=== PATIENT | male | born 1985 | race Caucasian/White ===

== ENCOUNTER 2017-07-22 07:56 | Outpatient (CLI) | payer BC ==
[~2017-07-22 07:56] MED LIST: ACETAMINOPHEN 325 MG TABLET PO PRN; DEXTROSE 5%-WATER 250 ML IV PRN; DIPHENHYDRAMINE HCL 50 MG in NORMAL SALINE 50 ML IV PRN; IMMUNE GLOB GAM CAPRYLATE IV PRN; [UNRECOGNIZED DRUG - OTHER] IV PRN
[2017-07-22 09:52] VITALS: BP 105/65
== END 2017-07-22 13:00 | disposition home or self-care (01) ==
LOC: II 07:56 → 5TH 07:58 → II 13:00
PROVIDERS: ATTEND Internal Medicine
PROC: 30233S1 Transfusion of Nonautologous Globulin into Peripheral Vein, Percutaneous Approach (ICD-10-PCS; principal; 2017-07-22)
PROC: 3E033GC Introduction of Other Therapeutic Substance into Peripheral Vein, Percutaneous Approach (ICD-10-PCS; 2017-07-22)
DX: D80.1 Nonfamilial hypogammaglobulinemia (principal)
CPT/HCPCS: 96413; 96415; 96374; 96417; J1561 ×3; J1200; J3490; 96365; 96366; 96375

== ENCOUNTER 2017-08-19 10:05 | Outpatient (CLI) | payer BC ==
[~2017-08-19 10:05] MED LIST changes: +DIPHENHYDRAMINE HCL 25 MG CAPSULE PO PRN; -DIPHENHYDRAMINE HCL 50 MG in NORMAL SALINE 50 ML IV PRN
[2017-08-19 11:48] VITALS: BP 121/71
== END 2017-08-19 14:22 | disposition home or self-care (01) ==
LOC: II 10:05 → 5TH 10:08 → II 14:22
PROVIDERS: ATTEND Internal Medicine
PROC: 30233S1 Transfusion of Nonautologous Globulin into Peripheral Vein, Percutaneous Approach (ICD-10-PCS; principal; 2017-08-19)
DX: D80.1 Nonfamilial hypogammaglobulinemia (principal)
CPT/HCPCS: 96367; 96360; J1561 ×3; J3490; 96365; 96366

== ENCOUNTER 2018-05-04 07:50 | Outpatient (CLI) | payer BC ==
[~2018-05-04 07:50] MED LIST changes: -DIPHENHYDRAMINE HCL 25 MG CAPSULE PO PRN; +DIPHENHYDRAMINE HCL 50 MG CAPSULE PO PRN; +GLY IV PRN; +IGA OV50 IV PRN; +IMMUN GLOB IV PRN; -IMMUNE GLOB GAM CAPRYLATE IV PRN; +[UNRECOGNIZED DRUG - OTHER] IV PRN; -[UNRECOGNIZED DRUG - OTHER] IV PRN
== END 2018-05-04 13:27 | disposition home or self-care (01) ==
LOC: II 07:50 → 5TH 07:56 → II 13:27
PROVIDERS: ATTEND Internal Medicine
PROC: 30233S1 Transfusion of Nonautologous Globulin into Peripheral Vein, Percutaneous Approach (ICD-10-PCS; principal; 2018-05-04)
DX: D83.9 Common variable immunodeficiency, unspecified (principal); D80.1 Nonfamilial hypogammaglobulinemia
CPT/HCPCS: 96365; 96366; 96367; 96360; J3490; J1569 ×3

== ENCOUNTER 2018-05-25 08:27 | Outpatient (CLI) | payer BC ==
[~2018-05-25 08:27] MED LIST changes: +[UNRECOGNIZED DRUG - OTHER] IV PRN; -[UNRECOGNIZED DRUG - OTHER] IV PRN
[2018-05-25 09:26] VITALS: BP 110/58
[2018-05-25 10:04] LABS: ABSOLUTE LYMPHOCYTES (AUTO) 0.8 10^3/uL (0.5-4.7); ABSOLUTE MONOCYTES (AUTO) 0.2 10^3/uL (0.1-1.4); ABSOLUTE NEUT (AUTO) 4.6 10^3/uL (1.7-8.2); BASOPHILS % (AUTO) 0.5 % (0-2); EOSINOPHILS % (AUTO) 0.2 % (0-6); HEMATOCRIT 41.8 % (37.9-51.0); HEMOGLOBIN 14.5 g/dL (13.5-17.0); LYMPHOCYTES % (AUTO) 13.9 % (13-45); MEAN CORPUSCULAR HEMOGLOBIN 29.1 pg (27.0-33.4); MEAN CORPUSCULAR HGB CONC 34.8 g/dL (32.0-36.0); MEAN CORPUSCULAR VOLUME 84 fl (80-97); MONOCYTES % (AUTO) 3.5 % (3-13); PLATELET COUNT 196 10^3/uL (150-450); RED CELL DISTRIBUTION WIDTH 15.1 % (11.5-14.0); SEGMENTED NEUTROPHILS % (AUTO) 81.9 % (42-78); TOTAL CELLS COUNTED % (AUTO) 100 %; WHITE BLOOD COUNT 5.6 10^3/uL (4.0-10.5)
[2018-05-25 10:22] LABS: ALANINE AMINOTRANSFERASE 39 U/L (21-72); ALBUMIN 3.9 g/dL (3.5-5.0); ALKALINE PHOSPHATASE 97 U/L (38-126); ANION GAP 9 (5-19); ASPARTATE AMINO TRANSFERASE 29 U/L (17-59); BILIRUBIN,DIRECT 0.2 mg/dL (0.0-0.4); BILIRUBIN,TOTAL 0.4 mg/dL (0.2-1.3); BLOOD UREA NITROGEN 7 mg/dL (7-20); CALCIUM 9.1 mg/dL (8.4-10.2); CARBON DIOXIDE 31 mmol/L (22-30); CHLORIDE 105 mmol/L (98-107); GLUCOSE 72 mg/dL (75-110); POTASSIUM 4.1 mmol/L (3.6-5.0); SODIUM 144.5 mmol/L (137-145); TOTAL PROTEIN 6.2 g/dL (6.3-8.2)
== END 2018-05-25 13:41 | disposition home or self-care (01) ==
LOC: II 08:27 → 5TH 08:29 → II 13:41
PROVIDERS: ATTEND Internal Medicine
PROC: 30233S1 Transfusion of Nonautologous Globulin into Peripheral Vein, Percutaneous Approach (ICD-10-PCS; principal; 2018-05-25)
DX: D83.9 Common variable immunodeficiency, unspecified (principal); D80.1 Nonfamilial hypogammaglobulinemia
CPT/HCPCS: 36415; 85025; 80053; 96365; 96366; J3490; J1569 ×2

== ENCOUNTER 2018-07-06 08:28 | Outpatient (CLI) | payer BC ==
[~2018-07-06 08:28] MED LIST changes: -ACETAMINOPHEN 325 MG TABLET PO PRN; -DIPHENHYDRAMINE HCL 50 MG CAPSULE PO PRN; +DIPHENHYDRAMINE HCL 50 MG in NORMAL SALINE 50 ML IV PRN; -GLY IV PRN; -IGA OV50 IV PRN; -IMMUN GLOB IV PRN; +IMMUNE GLOB,GAM CAPRYLATE(IGG) 40 GM, IMMUNE GLOB,GAM CAPRYLATE(IGG) 10 GM in CONTAINER... IV PRN; -[UNRECOGNIZED DRUG - OTHER] IV PRN
[2018-07-06 09:13] VITALS: BP 110/63
[2018-07-06] MEDS ORDERED: DIPHENHYDRAMINE HCL 50 MG/ML VIAL ONE (09:23)
== END 2018-07-06 13:01 | disposition home or self-care (01) ==
LOC: II 08:28 → 5TH 08:58 → II 13:01
PROVIDERS: ATTEND Internal Medicine
PROC: 30233S1 Transfusion of Nonautologous Globulin into Peripheral Vein, Percutaneous Approach (ICD-10-PCS; principal; 2018-07-06)
PROC: 3E033GC Introduction of Other Therapeutic Substance into Peripheral Vein, Percutaneous Approach (ICD-10-PCS; 2018-07-06)
DX: D83.9 Common variable immunodeficiency, unspecified (principal); D80.1 Nonfamilial hypogammaglobulinemia
CPT/HCPCS: 96365; 96367; J1561 ×2; J1200; J3490; 96366

== ENCOUNTER 2018-10-20 12:44 | Emergency (ER) | payer BC ==
[2018-10-20] MEDS ORDERED: NORMAL SALINE 1000 ML 1,000 ML IV ONE (14:02)
[2018-10-20] MEDS ORDERED: ONDANSETRON HCL INJ/PF 4 MG/2 ML SDV IV ONE (14:02)
--- NOTE | 2018-10-20 14:03 | ER Document Report ---
ED Medical Screen (RME) - General Chief Complaint: Nausea/Vomiting/Diarrhea Stated Complaint: VOMITING Time Seen by Provider: 10/20/18 14:01 Mode of Arrival: Ambulatory Information source: Patient Notes: Patient presents with nausea vomiting diarrhea that started yesterday. Patient states he is vomited 3 times and had diarrhea 8 times today. No blood in emesis or stool. Patient reports decreased appetite and feeling lightheaded. Patient complains of generalized abdominal pain. No fever. Patient does have a history of common variable immunodeficiency syndrome as well as psoriasis and takes Humira to treat his psoriasis. I have greeted and performed a rapid initial assessment of this patient. A comprehensive ED assessment and evaluation of the patient, analysis of test results and completion of the medical decision making process will be conducted by additional ED providers. TRAVEL OUTSIDE OF THE [place] IN LAST 30 DAYS: No - Related Data Allergies/Adverse Reactions: No Known Drug Allergies Allergy (Mild, Verified 10/20/18 13:36) Past Medical History - Social History Frequency of alcohol use: Occasional Drug Abuse: None Pulmonary Medical History: Reports: Hx Pneumonia Renal/ Medical History: Denies: Hx Peritoneal Dialysis Skin Medical History: Reports Hx Psoriasis - Immunizations Hx Diphtheria, Pertussis, Tetanus Vaccination: Yes History of Influenza Vaccine for 01/2017 - 06/2017 Season: Refused Physical Exam - Vital signs Vitals: Temp Pulse Resp BP Pulse Ox 98.2 F 91 18 123/81 99 10/20/18 13:54 10/20/18 13:54 10/20/18 13:54 10/20/18 13:54 10/20/18 13:54 - Abdominal Tenderness: Tender - Generalized abdomen Course - Vital Signs Vital signs: Temp Pulse Resp BP Pulse Ox 98.2 F 91 18 123/81 99 10/20/18 13:54 10/20/18 13:54 10/20/18 13:54 10/20/18 13:54 10/20/18 13:54
[2018-10-20 15:19] LABS: ABSOLUTE BASOPHILS # (AUTO) 0.1 10^3/uL (0.0-0.2); ABSOLUTE MONOCYTES (AUTO) 0.6 10^3/uL (0.1-1.4); ABSOLUTE NEUT (AUTO) 5.8 10^3/uL (1.7-8.2); BASOPHILS % (AUTO) 0.7 % (0-2); EOSINOPHILS % (AUTO) 0.1 % (0-6); HEMATOCRIT 48.8 % (37.9-51.0); HEMOGLOBIN 16.9 g/dL (13.5-17.0); LYMPHOCYTES % (AUTO) 13.2 % (13-45); MEAN CORPUSCULAR HEMOGLOBIN 28.5 pg (27.0-33.4); MEAN CORPUSCULAR HGB CONC 34.6 g/dL (32.0-36.0); MEAN CORPUSCULAR VOLUME 82 fl (80-97); MONOCYTES % (AUTO) 7.5 % (3-13); PLATELET COUNT 192 10^3/uL (150-450); RED BLOOD COUNT 5.93 10^6/uL (4.35-5.55); RED CELL DISTRIBUTION WIDTH 14.8 % (11.5-14.0); SEGMENTED NEUTROPHILS % (AUTO) 78.5 % (42-78); TOTAL CELLS COUNTED % (AUTO) 100 %; WHITE BLOOD COUNT 7.4 10^3/uL (4.0-10.5)
--- NOTE | 2018-10-20 15:27 | ER Document Report ---
ED General - General Chief Complaint: Nausea/Vomiting/Diarrhea Stated Complaint: VOMITING Time Seen by Provider: 10/20/18 14:01 Mode of Arrival: Ambulatory Notes: Patient is a 33-year-old male history of common variable immunodeficiency presents to the emergency department for generalized nausea, vomiting, diarrhea for the last 2 days. Patient states he has had over 5 episodes of vomiting and 8 episodes of diarrhea. He is denying blood in either. Patient states he has a history of Gamunex infusions as well as IV Ig infusions. States last Gamunex was 07/01/2018, last IVIG was 08/03/2018. States there is an overall shortage of both which is why he is not getting his infusions. Patient is denying any URI or symptoms or fevers. Patient is denying any abdominal pain or dysuria TRAVEL OUTSIDE OF THE [place] IN LAST 30 DAYS: No - Related Data Allergies/Adverse Reactions: No Known Drug Allergies Allergy (Mild, Verified 10/20/18 13:36) Past Medical History - General Information source: Patient - Social History Smoking Status: Never Smoker Frequency of alcohol use: Occasional Drug Abuse: None Family History: Reviewed & Not Pertinent Patient has suicidal ideation: No Patient has homicidal ideation: No Pulmonary Medical History: Reports: Hx Pneumonia Renal/ Medical History: Denies: Hx Peritoneal Dialysis Skin Medical History: Reports Hx Psoriasis - Immunizations Hx Diphtheria, Pertussis, Tetanus Vaccination: Yes Review of Systems - Review of Systems Constitutional: denies: Fever EENT: No symptoms reported Cardiovascular: No symptoms reported Respiratory: No symptoms reported Gastrointestinal: See HPI Genitourinary: See HPI Male Genitourinary: No symptoms reported Musculoskeletal: No symptoms reported Skin: No symptoms reported Hematologic/Lymphatic: See HPI Neurological/Psychological: No symptoms reported Physical Exam - Vital signs Vitals: Temp Pulse Resp BP Pulse Ox 98.2 F 91 18 123/81 99 10/20/18 13:54 10/20/18 13:54 10/20/18 13:54 10/20/18 13:54 10/20/18 13:54 - Notes Notes: GENERAL: Alert, interacts well. No acute distress. HEAD: Normocephalic, atraumatic. EYES: Pupils equal, round, and reactive to light. Extraocular movements intact. ENT: Oral mucosa moist, tongue midline. NECK: Full range of motion. Supple. Trachea midline. LUNGS: Clear to auscultation bilaterally, no wheezes, rales, or rhonchi. No respiratory distress. HEART: Regular rate and rhythm. No murmur ABDOMEN: Soft, non-tender. Non-distended. Bowel sounds present in all 4 quadrants. No McBurney's point tenderness, no Lara sign noted. EXTREMITIES: Moves all 4 extremities spontaneously. No edema, normal radial and dorsalis pedis pulses bilaterally. No cyanosis. BACK: no cervical, thoracic, lumbar midline tenderness. No saddle anesthesia, normal distal neurovascular exam. No CVA tenderness noted bilaterally NEUROLOGICAL: Alert and oriented x3. Normal speech. cranial nerves II through XII grossly intact PSYCH: Normal affect, normal mood. SKIN: Warm, dry, normal turgor. Generalized psoriasis noted abdomen, patient states that is baseline. Course - Re-evaluation Re-evalutation: Laboratory 10/20/18 10/20/18 15:06 15:06 WBC 7.4 RBC 5.93 H Hgb 16.9 Hct 48.8 MCV 82 MCH 28.5 MCHC 34.6 RDW 14.8 H Plt Count 192 Seg Neutrophils % 78.5 H Lymphocytes % 13.2 Monocytes % 7.5 Eosinophils % 0.1 Basophils % 0.7 Absolute Neutrophils 5.8 Absolute Lymphocytes 1.0 Absolute Monocytes 0.6 Absolute Eosinophils 0.0 Absolute Basophils 0.1 Sodium 136.3 L Potassium 4.6 Chloride 95 L Carbon Dioxide 30 Anion Gap 11 BUN 10 Creatinine 0.66 Est GFR ( Amer) > 60 Est GFR (Non-Af Amer) > 60 Glucose 102 Calcium 9.6 Total Bilirubin 1.3 Direct Bilirubin 0.3 Neonat Total Bilirubin Not Reportable Neonat Direct Bilirubin Not Reportable Neonat Indirect Bili Not Reportable AST 23 ALT 34 Alkaline Phosphatase 87 Total Protein 6.9 Albumin 4.6 Lipase 46.9 After treatment with antiemetics and fluid patient states he overall feels a lot better. Patient's labs are unremarkable. Patient continues to deny any abdominal pain, abdominal assessment continues to be benign. Based on patient's history I have discussed this case with his heme-onc doctor Dr. Mcneil who is suggesting close follow-up. We both agree this is most likely a viral gastroenteritis. No need for prophylactic antibiotics. Discussed with patient close return precautions and need to follow-up. Patient agrees with plan and is stable for discharge. - Vital Signs Vital signs: Temp Pulse Resp BP Pulse Ox 98.2 F 91 18 123/81 99 10/20/18 13:54 10/20/18 13:54 10/20/18 13:54 10/20/18 13:54 10/20/18 13:54 - Laboratory Result Diagrams: 10/20/18 15:06 10/20/18 15:06 Laboratory results interpreted by me: 10/20/18 10/20/18 15:06 15:06 RBC 5.93 H RDW 14.8 H Seg Neutrophils % 78.5 H Sodium 136.3 L Chloride 95 L Discharge - Discharge Clinical Impression: Nausea vomiting and diarrhea Condition: Stable Disposition: HOME, SELF-CARE Instructions: Antinausea Medication ([facility]), Diarrhea, Nonspecific ([facility]), Intravenous (IV) Fluids ([facility]), Vomiting ([facility]) Additional Instructions: As we discussed you have been seen and treated in the emergency department for nausea, vomiting, diarrhea, generalized dehydration. 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 Schroeder we are both in agreements that this is likely a viral illness that will be self-limiting. There is no need to give you any prophyla ctic antibiotics. Please make sure you are taking nausea medication as prescribed and are staying well-hydrated. Please also immediately return to the emergency room should you have any other concerns. Other concerns. Please follow-up with your primary care provider and your feed miller in the next 24 to 48 hours. Prescriptions: Ondansetron [Zofran Odt 4 mg Tablet] 1 - 2 tab PO Q6 #10 tab.rapdis Forms: Return to Work
[2018-10-20 15:38] LABS: ALANINE AMINOTRANSFERASE 34 U/L (21-72); ALBUMIN 4.6 g/dL (3.5-5.0); ALKALINE PHOSPHATASE 87 U/L (38-126); ANION GAP 11 (5-19); ASPARTATE AMINO TRANSFERASE 23 U/L (17-59); BILIRUBIN,DIRECT 0.3 mg/dL (0.0-0.4); BILIRUBIN,TOTAL 1.3 mg/dL (0.2-1.3); BLOOD UREA NITROGEN 10 mg/dL (7-20); CALCIUM 9.6 mg/dL (8.4-10.2); CARBON DIOXIDE 30 mmol/L (22-30); CHLORIDE 95 mmol/L (98-107); GLUCOSE 102 mg/dL (75-110); LIPASE 46.9 U/L (23-300); POTASSIUM 4.6 mmol/L (3.6-5.0); SODIUM 136.3 mmol/L (137-145); TOTAL PROTEIN 6.9 g/dL (6.3-8.2)
[2018-10-20 17:11] VITALS: BP 110/61
== END 2018-10-20 17:12 | disposition home or self-care (01) ==
LOC: ER 12:44
DX: R11.2 Nausea with vomiting, unspecified (principal); R19.7 Diarrhea, unspecified; D83.9 Common variable immunodeficiency, unspecified; L40.9 Psoriasis, unspecified
CPT/HCPCS: 99284; 96361; 96374; 36415; 83690; 85025; 80053; J2405; J7030

== ENCOUNTER 2019-07-04 17:45 | Emergency (ER) | payer BC ==
[2019-07-04] MEDS ORDERED: NORMAL SALINE 1000 ML 1,000 ML IV ONE ×2 (17:48→22:51)
[2019-07-04] MEDS ORDERED: ONDANSETRON 4 MG TAB.RAPDIS PO ONE (17:48)
--- NOTE | 2019-07-04 17:53 | ER Document Report ---
ED Medical Screen (RME) - General Chief Complaint: Vomiting/Diarrhea Stated Complaint: DIARRHEA,VOMITING,COUGH,FEVER Time Seen by Provider: 07/04/19 17:47 Mode of Arrival: Ambulatory Information source: Patient Notes: 33-year-old male presents to ED for complaint of nausea vomiting diarrhea and fever since Thursday or Thursday. He states he is not been able to keep any food down but is able to keep tenuously drink small amounts of water. He states he has been trying to keep his temperature down with Tylenol and sip of water. Patient states he also has common variable immune deficiency disorder. He states he is about 3 months past due for his infusion. He has no immune system. Patient states he also has cough congestion and upper abdominal lower chest pain. I have greeted and performed a rapid initial assessment of this patient. A comprehensive ED assessment and evaluation of the patient, analysis of test results and completion of medical decision making process will be conducted by an additional ED providers. TRAVEL OUTSIDE OF THE [place] IN LAST 30 DAYS: No - Related Data Allergies/Adverse Reactions: No Known Drug Allergies Allergy (Mild, Verified 10/20/18 13:36) Past Medical History Pulmonary Medical History: Reports: Hx Pneumonia Renal/ Medical History: Denies: Hx Peritoneal Dialysis Skin Medical History: Reports Hx Psoriasis - Immunizations Hx Diphtheria, Pertussis, Tetanus Vaccination: Yes
[2019-07-04] MEDS ORDERED: PIPERACILLIN/TAZOBACTAM 4.5 GM VIAL IV ONE (17:54)
[2019-07-04] MEDS ORDERED: ACETAMINOPHEN 325 MG TABLET PO ONE (17:54)
[2019-07-04] MEDS ORDERED: NORMAL SALINE IV ONE (17:54)
[2019-07-04 18:27] LABS: VENOUS BLOOD BASE EXCESS 2.1 mmol/L; VENOUS BLOOD HCO3 27.1 mmol/L (20-32); VENOUS BLOOD PCO2 43.1 mmHg (35-63); VENOUS BLOOD PH 7.42 (7.30-7.42)
[2019-07-04 18:35] LABS: HEMATOCRIT 48.3 % (37.9-51.0); HEMOGLOBIN 17.2 g/dL (13.5-17.0); MEAN CORPUSCULAR HEMOGLOBIN 29.8 pg (27.0-33.4); MEAN CORPUSCULAR HGB CONC 35.5 g/dL (32.0-36.0); MEAN CORPUSCULAR VOLUME 84 fl (80-97); PLATELET COUNT 176 10^3/uL (150-450); RED BLOOD COUNT 5.76 10^6/uL (4.35-5.55); RED CELL DISTRIBUTION WIDTH 14.2 % (11.5-14.0); WHITE BLOOD COUNT 16.6 10^3/uL (4.0-10.5)
[2019-07-04 18:36] LABS: INTERNATIONAL RATION (INR) 1.06; PROTHROMBIN TIME 13.8 SEC (11.4-15.4)
[2019-07-04 18:47] LABS: ALBUMIN 4.4 g/dL (3.5-5.0); ALKALINE PHOSPHATASE 85 U/L (38-126); ASPARTATE AMINO TRANSFERASE 41 U/L (17-59); BILIRUBIN,DIRECT 0.4 mg/dL (0.0-0.4); BILIRUBIN,TOTAL 0.8 mg/dL (0.2-1.3); BLOOD UREA NITROGEN 35 mg/dL (7-20); CALCIUM 9.3 mg/dL (8.4-10.2); CHLORIDE 85 mmol/L (98-107); GLUCOSE 131 mg/dL (75-110); TOTAL PROTEIN 7.7 g/dL (6.3-8.2)
[2019-07-04 18:56] LABS: ABSOLUTE LYMPHOCYTES# (MANUAL) 1.5 10^3/uL (0.5-4.7); ABSOLUTE MONOCYTES # (MANUAL) 0.5 10^3/uL (0.1-1.4); BAND NEUTROPHILS % (MANUAL) 2 % (3-5); BASOPHILS % (MANUAL) 0 % (0-2); EOSINOPHILS % (MANUAL) 0 % (0-6); LYMPHOCYTES % (MANUAL) 6 % (13-45); MONOCYTES % (MANUAL) 3 % (3-13); SEGMENTED NEUTROPHILS % (MAN) 86 % (42-78); TOTAL CELLS COUNTED 100
[2019-07-04 18:58] LABS: ANISOCYTOSIS SLIGHT; OVALOCYTES SLIGHT; PLATELET COMMENT ADEQUATE; POIKILOCYTOSIS SLIGHT
--- NOTE | 2019-07-04 19:00 | ER Document Report ---
ED General - General Chief Complaint: Nausea/Vomiting/Diarrhea Stated Complaint: DIARRHEA,VOMITING,COUGH,FEVER Time Seen by Provider: 07/04/19 17:47 Primary Care Provider: JESÚS HALL MD [ACTIVE STAFF] - Follow up as needed Mode of Arrival: Ambulatory Information source: Patient TRAVEL OUTSIDE OF THE [place] IN LAST 30 DAYS: No - HPI Onset: Other - last night (4 nights ago) Onset/Duration: Gradual Quality of pain: Achy Severity: Moderate Pain Level: 1 Associated symptoms: Diarrhea, Nausea, Vomiting, Other - mild upper abdominal pain Exacerbated by: Food Relieved by: Other - Zofran he has from before seems to help some Similar symptoms previously: Yes - with prior viral infections Recently seen / treated by doctor: No Notes: 33 year old male with a history of Common Variable Immune Deficiency who has not had his IVIG Infusion (he is over 3 months late in getting this due to insurance and financial issues) here generalized weakness, low grade temps, body aches, nausea, vomiting, and diarrhea. The patient started to feel weak and run down night and he noticed some night sweats then as well. The patient woke up Thursday with body aches, nausea, vomiting, and diarrhea. The patient says he has been unable to keep much of anything down. He had some old Zofran which he used and this seemed to help some with keeping small amounts of fluids down. The patient has not traveled outside the [place] and the patient denies sick contacts other then his girlfriend who has similar symptoms to him. - Related Data Allergies/Adverse Reactions: No Known Drug Allergies Allergy (Mild, Verified 07/04/19 17:54) Past Medical History - General Information source: Patient - Social History Smoking Status: Current Every Day Smoker Chew tobacco use (# tins/day): No Frequency of alcohol use: Occasional Drug Abuse: None Family History: Reviewed & Not Pertinent Patient has suicidal ideation: No Patient has homicidal ideation: No Pulmonary Medical History: Reports: Hx Pneumonia Renal/ Medical History: Denies: Hx Peritoneal Dialysis Skin Medical History: Reports Hx Psoriasis - Immunizations Hx Diphtheria, Pertussis, Tetanus Vaccination: Yes Review of Systems - Review of Systems Constitutional: Chills, Diaphoresis, Fever, Malaise, Weakness EENT: No symptoms reported Cardiovascular: No symptoms reported Respiratory: Cough Gastrointestinal: Abdominal pain, Diarrhea, Nausea, Vomiting Genitourinary: No symptoms reported Male Genitourinary: No symptoms reported Musculoskeletal: Other - body aches Skin: No symptoms reported Hematologic/Lymphatic: No symptoms reported Neurological/Psychological: No symptoms reported -: Yes All other systems reviewed and negative Physical Exam - Vital signs Vitals: Pulse Resp BP Pulse Ox 120 H 19 126/89 H 95 07/04/19 17:48 07/04/19 17:48 07/04/19 17:48 07/04/19 17:48 - Notes Notes: GENERAL: Well-appearing, well-nourished and in no acute distress. HEAD: Atraumatic, normocephalic. EYES: Pupils equal round and reactive to light, extraocular movements intact, sclera anicteric, conjunctiva are normal. ENT: Oropharynx slightly erythematous without exudates. Moist mucous membranes. NECK: Normal range of motion, supple without lymphadenopathy or JVD. LUNGS: Breath sounds clear to auscultation bilaterally and equal. No wheezes rales or rhonchi. HEART: Regular rate and rhythm without murmurs, rubs or gallops. ABDOMEN: Soft, nontender, normoactive bowel sounds. No guarding, no rebound. No masses appreciated. EXTREMITIES: Normal range of motion, no pitting or edema. No clubbing or cyanosis. NEUROLOGICAL: Cranial nerves II through XII grossly intact. Normal speech, normal gait. PSYCH: Normal mood, normal affect. SKIN: Warm, Dry, normal turgor, no rashes or lesions noted. Course - Re-evaluation Re-evalutation: 07/04/19 23:02 The patient is here for nausea, vomiting, diarrhea, and a cough. Chest Xray shows a likely right middle lobe pneumonia and patient has a cough and pain in this area. Due to the patient's immuno-compromised state, he very well could have had a viral illness which then made him susceptible to pneumonia. The patient was treated in the ER with fluids, zofran, (IV zosyn ordered in triage) and PO Levaquin. The patient was offered admission but her preferred to go home on oral antibiotics and try outpatient treatment which is reasonable given his normal vital signs. Patient DCed with scripts for Zofran and Levaquin. - Vital Signs Vital signs: Temp Pulse Resp BP Pulse Ox 99.1 F 120 H 17 132/90 H 99 03/09/20 20:40 07/04/19 17:48 07/04/19 22:02 07/04/19 22:02 07/04/19 22:02 - Laboratory Result Diagrams: 07/04/19 18:11 07/04/19 18:11 Laboratory results interpreted by me: 07/04/19 07/04/19 18:11 18:11 WBC 16.6 H RBC 5.76 H Hgb 17.2 H RDW 14.2 H Seg Neuts % (Manual) 86 H Band Neutrophils % 2 L Lymphocytes % (Manual) 6 L Abs Neuts (Manual) 14.6 H Sodium 128.9 L Potassium 3.3 L Chloride 85 L Anion Gap 20 H BUN 35 H Creatinine 1.26 H Glucose 131 H Lipase 362.2 H - Diagnostic Test Radiology reviewed: Image reviewed, Reports reviewed - EKG Interpretation by Me EKG shows normal: Sinus rhythm, Pimento, Intervals Rate: Normal Rhythm: NSR Pimento/QRS: RBBB Additional EKG results interpreted by me: 07/04/19 22:43 T wave inversions in aVR, V1, V2 Discharge - Discharge Clinical Impression: Gastroenteritis Nausea & vomiting Qualifiers: Vomiting type: unspecified Vomiting Intractability: unspecified Qualified Code(s): R11.2 - Nausea with vomiting, unspecified Pneumonia Qualifiers: Pneumonia type: due to unspecified organism Laterality: right Lung location: middle lobe of lung Qualified Code(s): J18.9 - Pneumonia, unspecified organism Disposition: HOME, SELF-CARE Instructions: Gastroenteritis (adult) ([facility]), Nausea or Vomiting, Nonspecific ([facility]), Pneumonia ([facility]) Additional Instructions: Take Levoquin as prescribed for your likely right middle lobe pneumonia seen on Xray. Use Zofran as needed for nausea. Drink plenty of fluids in the days to come. Use Tylenol and Motrin for body aches and fevers. Follow up with your primary care doctor or the with the primary care doctor listed in your paperwork today in the next several days to ensure improvement of symptoms. Return to an ER if worse in anyway. Prescriptions: Levofloxacin [Levaquin 750 mg Tablet] 750 mg PO DAILY 5 Days #5 tab Ondansetron [Zofran Odt 4 mg Tablet] 1 tab PO Q6H PRN #15 tab.rapdis PRN Reason: For Nausea/Vomiting Referrals: JESÚS HALL MD [ACTIVE STAFF] - Follow up as needed
[2019-07-04 19:07] LABS: CARBON DIOXIDE 24 mmol/L (22-30); POTASSIUM 3.3 mmol/L (3.6-5.0)
[2019-07-04 19:09] LABS: ANION GAP 20 (5-19)
[2019-07-04] MEDS ORDERED: POTASSIUM CHLORIDE 20 MEQ PACKET PO ONE (19:32)
--- NOTE | 2019-07-04 20:49 | RADIOLOGY REPORT (SQ) ---
XR CHEST 2 VIEWS EXAM DATE: 07/04/2019 7:34 PM CDT HISTORY: Chest pain. COMPARISON: None. FINDINGS: The cardiac silhouette is within normal limits. There is no pulmonary vascular congestion. There is a focal opacity in the right lateral lung base likely in the right middle lobe. No pleural effusions or pneumothorax. IMPRESSION: Findings suggestive of right middle lobe pneumonia.
[2019-07-04 21:14] LABS: A TYPE INFLUENZA AG NEGATIVE (NEGATIVE); B INFLUENZA AG NEGATIVE (NEGATIVE)
[2019-07-04] MEDS ORDERED: POTASSIUM CHLORIDE 10 MEQ TABLET.ER PO ONE (21:48)
[2019-07-04] MEDS ORDERED: LEVOFLOXACIN 750 MG TABLET PO ONE (22:51)
[2019-07-05 00:01] VITALS: BP 110/73
--- NOTE | 2019-07-05 11:59 | EKG REPORT ---
SEVERITY:- ABNORMAL ECG - SINUS RHYTHM RIGHT BUNDLE BRANCH BLOCK : Confirmed by: Katey Branch 05-Jul-2019 11:59:18
== END 2019-07-05 00:16 | disposition home or self-care (01) ==
LOC: ER 17:45
DX: J18.9 Pneumonia, unspecified organism (principal); K52.9 Noninfective gastroenteritis and colitis, unspecified; R11.2 Nausea with vomiting, unspecified; R50.9 Fever, unspecified; R05 Cough; R10.10 Upper abdominal pain, unspecified; R53.1 Weakness; D83.9 Common variable immunodeficiency, unspecified; F17.200 Nicotine dependence, unspecified, uncomplicated
CPT/HCPCS: 93005; 99284; 96361; 96374; 36415; 87040; 83605; 83690; 83735; 85025; 85610; 87077; 80053; 84484; 82803; 87804; 87150 ×26; 71046; 93010; S0119; J7030; J2543; J3490; 87186

== ENCOUNTER 2019-07-05 13:22 | Inpatient (IN) | payer BC ==
--- NOTE | 2019-07-05 13:52 | ER Document Report ---
ED Medical Screen (RME) - General Chief Complaint: Abnormal Lab Results Stated Complaint: ABNORMAL LABS Time Seen by Provider: 07/05/19 13:49 Mode of Arrival: Ambulatory Information source: Patient Notes: 33-year-old male presented to ED for complaint of continued shortness of breath. He did have a positive blood culture gram-positive cocci in chains. He was diagnosed with right lower lobe pneumonia and gastritis. He states he is continued to have nausea and diarrhea body aches and weakness. He does have a history of common variable immunodeficiency and is supposed to get IVIG every 3 months but he is not had any recently. He was called to come back to get IV antibiotics. I have greeted and performed a rapid initial assessment of this patient. A comprehensive ED assessment and evaluation of the patient, analysis of test results and completion of medical decision making process will be conducted by an additional ED providers. TRAVEL OUTSIDE OF THE [place] IN LAST 30 DAYS: No - Related Data Allergies/Adverse Reactions: No Known Drug Allergies Allergy (Mild, Verified 07/05/19 13:46) Past Medical History - Social History Drug Abuse: Marijuana Pulmonary Medical History: Reports: Hx Pneumonia Renal/ Medical History: Denies: Hx Peritoneal Dialysis Skin Medical History: Reports Hx Psoriasis - Immunizations Hx Diphtheria, Pertussis, Tetanus Vaccination: Yes Physical Exam - Vital signs Vitals: Temp Pulse Resp BP Pulse Ox 98.4 F 97 16 111/71 95 07/05/19 13:27 07/05/19 13:27 07/05/19 13:27 07/05/19 13:27 07/05/19 13:27 Course - Vital Signs Vital signs: Temp Pulse Resp BP Pulse Ox 98.4 F 97 16 111/71 95 07/05/19 13:27 07/05/19 13:27 07/05/19 13:27 07/05/19 13:27 07/05/19 13:27
--- NOTE | 2019-07-05 14:24 | RADIOLOGY REPORT (SQ) ---
EXAM DESCRIPTION: CHEST 2 VIEWS COMPLETED DATE/TIME: 07/05/2019 2:13 pm REASON FOR STUDY: cough congestion hx of pneumonia COMPARISON: None. EXAM PARAMETERS: NUMBER OF VIEWS: two views TECHNIQUE: Digital Frontal and Lateral radiographic views of the chest acquired. RADIATION DOSE: NA LIMITATIONS: none FINDINGS: LUNGS AND PLEURA: Persistent opacity in the right base laterally. MEDIASTINUM AND HILAR STRUCTURES: No masses or contour abnormalities. HEART AND VASCULAR STRUCTURES: Heart normal size. No evidence for failure. BONES: No acute findings. HARDWARE: None in the chest. OTHER: No other significant finding. IMPRESSION: Right middle lobe pneumonia. There may be slight improvement. TECHNICAL DOCUMENTATION: JOB ID: [id number] 2010 [employer]- All Rights Reserved Reading location - IP/workstation name: [email or web address]
[2019-07-05] MEDS ORDERED: NORMAL SALINE 1000 ML 1,000 ML IV ONE (14:29)
--- NOTE | 2019-07-05 14:30 | ER Document Report ---
ED General - General Chief Complaint: Abnormal Lab Results Stated Complaint: ABNORMAL LABS Time Seen by Provider: 07/05/19 14:15 Mode of Arrival: Ambulatory Information source: Patient Notes: Patient presents with cough and diarrhea symptoms for the past 5 days. Patient was here yesterday and diagnosed with pneumonia. Patient had a preliminary positive blood culture and was advised to return for recheck. Patient denies any fever today last fever was yesterday. Patient denies any nausea or vomiting. Patient states he has had diarrhea x3 episodes today. TRAVEL OUTSIDE OF THE [place] IN LAST 30 DAYS: No - HPI Onset: Other - 5 days Onset/Duration: Persistent Associated symptoms: Productive cough, Nausea, Weakness. 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 Lives with: Spouse/Significant other Family History: Reviewed & Not Pertinent Patient has suicidal ideation: No Patient has homicidal ideation: No - Medical History Medical History: Other - Common variable immune deficiency Pulmonary Medical History: Reports: Hx Pneumonia Renal/ Medical History: Denies: Hx Peritoneal Dialysis Skin Medical History: Reports Hx Psoriasis Past Surgical History: Reports: Other - Eye surgery - Immunizations Hx Diphtheria, Pertussis, Tetanus Vaccination: Yes Review of Systems - Review of Systems Constitutional: Malaise, Recent illness - Right side pneumonia EENT: No symptoms reported Cardiovascular: Chest pain - With coughing Respiratory: Cough, Sputum Gastrointestinal: Nausea. denies: Abdominal pain, Diarrhea, Vomiting Genitourinary: No symptoms reported Male Genitourinary: No symptoms reported Musculoskeletal: No symptoms reported. denies: Back pain Skin: No symptoms reported Hematologic/Lymphatic: No symptoms reported Neurological/Psychological: No symptoms reported Physical Exam - Vital signs Vitals: Temp Pulse Resp BP Pulse Ox 98.4 F 97 16 111/71 95 07/05/19 13:27 07/05/19 13:27 07/05/19 13:27 07/05/19 13:27 07/05/19 13:27 - General General appearance: Appears well, Alert In distress: Mild - HEENT Head: Normocephalic, Atraumatic Eyes: Normal Conjunctiva: Normal Nasal: Normal Mouth/Lips: Normal Mucous membranes: Dry Pharynx: Normal Neck: Normal, Supple. No: Lymphadenopathy - Respiratory Respiratory status: No respiratory distress Chest status: Pain with cough, Pain with deep breathing Breath sounds: Nonproductive cough, Rhonchi Chest palpation: Normal - Cardiovascular Rhythm: Regular Heart sounds: S1 appreciated, S2 appreciated Murmur: No - Abdominal Inspection: Normal Distension: No distension Bowel sounds: Normal Tenderness: Nontender - Back Back: Normal, Nontender - Extremities General upper extremity: Normal inspection, Normal strength General lower extremity: Normal inspection, Normal strength - Neurological Neuro grossly intact: Yes Cognition: Normal [place] Coma Scale Eye Opening: Spontaneous [place] Coma Scale Verbal: Oriented [place] Coma Scale Motor: Obeys Commands [place] Coma Scale Total: 15 - Psychological Associated symptoms: Normal affect, Normal mood - Skin Skin Temperature: Warm Skin Moisture: Dry Skin Color: Normal Course - Re-evaluation Re-evalutation: 07/05/19 16:33 Patient with leukocytosis in the setting of right middle lobe pneumonia. Patient does have preliminary positive blood cultures in 2 bottles. Patient does with a history of common variable immunodeficiency and has not been rece iving his IVIG infusions due to lack of insurance coverage. Patient is nontoxic in appearance at this time. Call placed to hospitalist Dr. Paz, Dr. Paz agrees to accept patient with Leticia Uriarte covering. 07/05/19 16:46 Consulted with Leticia Uriarte [employer]INE OPERATOR who agrees to accept patient as a medical admit. 07/05/19 19:33 - Vital Signs Vital signs: Temp Pulse Resp BP Pulse Ox 98 F 75 17 103/63 97 07/05/19 17:46 07/05/19 17:46 07/05/19 17:46 07/05/19 17:46 07/05/19 17:46 - Laboratory Result Diagrams: 07/05/19 14:23 07/05/19 14:23 Laboratory results interpreted by me: 07/05/19 07/05/19 07/05/19 14:23 14:23 14:23 WBC 11.6 H RDW 14.1 H Abs Neuts (Manual) 8.9 H Sodium 136.5 L Potassium 3.2 L Chloride 97 L Total Protein 6.1 L Albumin 3.3 L Urine Protein 100 H Labs- Entire Visit 07/05/19 07/05/19 07/05/19 14:23 14:23 14:23 WBC 11.6 H RBC 4.84 Hgb 14.6 D Hct 41.1 MCV 85 MCH 30.2 MCHC 35.6 RDW 14.1 H Plt Count 161 Lymph % (Auto) Not Reportable Miller % (Auto) Not Reportable Eos % (Auto) Not Reportable Baso % (Auto) Not Reportable Absolute Neuts (auto) Not Reportable Absolute Lymphs (auto) Not Reportable Absolute Monos (auto) Not Reportable Absolute Eos (auto) Not Reportable Absolute Basos (auto) Not Reportable Total Counted 100 Seg Neutrophils % Not Reportable Seg Neuts % (Manual) 73 Band Neutrophils % 3 Lymphocytes % (Manual) 18 Atypical Lymphs % 2 Monocytes % (Manual) 3 Eosinophils % (Manual) 0 Basophils % (Manual) 0 Metamyelocytes % 1 Abs Neuts (Manual) 8.9 H Abs Lymphs (Manual) 2.3 Abs Monocytes (Manual) 0.3 Absolute Eos (Manual) 0.0 Abs Basophils (Manual) 0.0 Platelet Comment ADEQUATE Poikilocytosis SLIGHT Anisocytosis SLIGHT Ovalocytes SLIGHT Bre Cells SLIGHT Sodium 136.5 L Potassium 3.2 L Chloride 97 L Carbon Dioxide 29 Anion Gap 11 BUN 18 Creatinine 0.71 Est GFR ( Amer) > 60 Est GFR (MDRD) Non-Af > 60 Glucose 83 Calcium 8.7 Magnesium Total Bilirubin 0.6 Direct Bilirubin 0.3 Neonat Total Bilirubin Not Reportable Neonat Direct Bilirubin Not Reportable Neonat Indirect Bili Not Reportable AST 36 ALT 28 Alkaline Phosphatase 70 Total Protein 6.1 L Albumin 3.3 L Urine Color YELLOW Urine Appearance CLEAR Urine pH 6.0 Ur Specific [place] 1.016 Urine Protein 100 H Urine Glucose (UA) NEGATIVE Urine Ketones NEGATIVE Urine Blood NEGATIVE Urine Nitrite (Reflex) NEGATIVE Urine Bilirubin NEGATIVE Urine Urobilinogen NEGATIVE Leukocyte Esterase Rfl NEGATIVE Urine WBC RARE Urine Ascorbic Acid NEGATIVE 07/05/19 14:23 WBC RBC Hgb Hct MCV MCH MCHC RDW Plt Count Lymph % (Auto) Miller % (Auto) Eos % (Auto) Baso % (Auto) Absolute Neuts (auto) Absolute Lymphs (auto) Absolute Monos (auto) Absolute Eos (auto) Absolute Basos (auto) Total Counted Seg Neutrophils % Seg Neuts % (Manual) Band Neutrophils % Lymphocytes % (Manual) Atypical Lymphs % Monocytes % (Manual) Eosinophils % (Manual) Basophils % (Manual) Metamyelocytes % Abs Neuts (Manual) Abs Lymphs (Manual) Abs Monocytes (Manual) Absolute Eos (Manual) Abs Basophils (Manual) Platelet Comment Poikilocytosis Anisocytosis Ovalocytes Bre Cells Sodium Potassium Chloride Carbon Dioxide Anion Gap BUN Creatinine Est GFR ( Amer) Est GFR (MDRD) Non-Af Glucose Calcium Magnesium 2.3 Total Bilirubin Direct Bilirubin Neonat Total Bilirubin Neonat Direct Bilirubin Neonat Indirect Bili AST ALT Alkaline Phosphatase Total Protein Albumin Urine Color Urine Appearance Urine pH Ur Specific [place] Urine Protein Urine Glucose (UA) Urine Ketones Urine Blood Urine Nitrite (Reflex) Urine Bilirubin Urine Urobilinogen Leukocyte Esterase Rfl Urine WBC Urine Ascorbic Acid 07/05/19 19:32 Reviewed the labs from yesterday as well - Diagnostic Test Radiology reviewed: Image reviewed, Reports reviewed - Reviewed x-ray from yesterday Discharge - Discharge Clinical Impression: CVID (common variable immunodeficiency), Positive blood culture Pneumonia Qualifiers: Pneumonia type: due to unspecified organism Laterality: right Lung location: middle lobe of lung Qualified Code(s): J18.9 - Pneumonia, unspecified organism Condition: Stable Disposition: ADMITTED INPATIENT Admitting Provider: Brandi (Hospitalist) Unit Admitted: Medical Floor
[2019-07-05 14:55] LABS: HEMATOCRIT 41.1 % (37.9-51.0); MEAN CORPUSCULAR HEMOGLOBIN 30.2 pg (27.0-33.4); MEAN CORPUSCULAR HGB CONC 35.6 g/dL (32.0-36.0); MEAN CORPUSCULAR VOLUME 85 fl (80-97); PLATELET COUNT 161 10^3/uL (150-450); RED BLOOD COUNT 4.84 10^6/uL (4.35-5.55); RED CELL DISTRIBUTION WIDTH 14.1 % (11.5-14.0); WHITE BLOOD COUNT 11.6 10^3/uL (4.0-10.5)
[2019-07-05 15:07] LABS: APPEARANCE,URINE CLEAR; BILIRUBIN,URINE NEGATIVE (NEGATIVE); COLOR,URINE YELLOW; GLUCOSE, URINE NEGATIVE (NEGATIVE); KETONES,URINE NEGATIVE (NEGATIVE); PROTEIN,URINE 100 mg/dL (NEGATIVE); URINE SPECIFIC GRAVITY 1.016; UROBILINOGEN,URINE NEGATIVE mg/dL (<2.0)
[2019-07-05 15:11] LABS: ALBUMIN 3.3 g/dL (3.5-5.0); ALKALINE PHOSPHATASE 70 U/L (38-126); ANION GAP 11 (5-19); ASPARTATE AMINO TRANSFERASE 36 U/L (17-59); BILIRUBIN,DIRECT 0.3 mg/dL (0.0-0.4); BILIRUBIN,TOTAL 0.6 mg/dL (0.2-1.3); BLOOD UREA NITROGEN 18 mg/dL (7-20); CALCIUM 8.7 mg/dL (8.4-10.2); CARBON DIOXIDE 29 mmol/L (22-30); CHLORIDE 97 mmol/L (98-107); GLUCOSE 83 mg/dL (75-110); POTASSIUM 3.2 mmol/L (3.6-5.0); TOTAL PROTEIN 6.1 g/dL (6.3-8.2)
[2019-07-05] MEDS ORDERED: POTASSIUM CHLORIDE 10 MEQ TABLET.ER PO ONE (15:18)
[2019-07-05 15:31] LABS: ABSOLUTE LYMPHOCYTES# (MANUAL) 2.3 10^3/uL (0.5-4.7); ABSOLUTE MONOCYTES # (MANUAL) 0.3 10^3/uL (0.1-1.4); BAND NEUTROPHILS % (MANUAL) 3 % (3-5); BASOPHILS % (MANUAL) 0 % (0-2); EOSINOPHILS % (MANUAL) 0 % (0-6); LYMPHOCYTES % (MANUAL) 18 % (13-45); METAMYELOCYTES % (MANUAL) 1 % (0-1); MONOCYTES % (MANUAL) 3 % (3-13); SEGMENTED NEUTROPHILS % (MAN) 73 % (42-78); TOTAL CELLS COUNTED 100
[2019-07-05 15:33] LABS: ANISOCYTOSIS SLIGHT; BURR CELLS SLIGHT; OVALOCYTES SLIGHT; PLATELET COMMENT ADEQUATE; POIKILOCYTOSIS SLIGHT
[2019-07-05 15:35] LABS: HEMOGLOBIN 14.6 g/dL (13.5-17.0)
[2019-07-05] MEDS ORDERED: ALBUTEROL SULFATE 0.083% NEB 2.5 MG/3 ML AMPUL NEB PRN (17:37)
--- NOTE | 2019-07-05 18:00 | PDOC H&P ---
History of Present Illness Admission Date/PCP: 07/05/19 17:14 Patient complains of: shortness of breath History of Present Illness: BALWINDER MCGEE is a 33 year old male with a past medical history of common variable immunodeficiency and rheumatoid arthritis that typically receives IV Ig and Humira through Dr. Mcneil's office but has not received doses for several months due to insurance difficulties. He presented to the emergency department yesterday for complaint of progressively worsening fatigue, generalized weakness, low-grade fever, shortness of breath, nonproductive cough over the past 4 to 5 days with posttussive emesis and infrequent diarrhea. Influenza was not sought as the patient was outside window for Tamiflu. Chest x-ray did reveal a right middle lobe pneumonia. Blood cultures from ED visit 07/04/2019 have already resulted Streptococcus pneumoniae and 2 of 4 bottles. Based on blood culture results, the patient was called back into the emergency department for admission and management of bacteremia. Repeat laboratory evaluation today shows continued leukocytosis (WBC is 11.6), hypokalemia (K3.2), normal urinalysis, chest x-ray demonstrating slightly improved aeration of the right middle lobe, and stable vital signs. He is referred to the hospitalist service for admission and management of the above-stated complaints and findings. Past Medical History Cardiac Medical History: Reports: None Pulmonary Medical History: Reports: Pneumonia EENT Medical History: Reports: None Neurological Medical History: Reports: None Endocrine Medical History: Reports: None Renal/ Medical History: Reports: None Malignancy Medical History: Reports: None GI Medical History: Reports: None Musculoskeltal Medical History: Reports: None Skin Medical History: Reports: Psoriasis Psychiatric Medical History: Reports: None Traumatic Medical History: Reports: None Hematology: Reports: Other - Immune deficiency Infectious Medical History: Reports: None Past Surgical History Past Surgical History: Reports: None Social History Information Source: Patient, Relative Lives with: Family Smoking Status: Current Every Day Smoker Cigarettes Packs Per Day: 0.5 Electronic Cigarette use?: No Frequency of Alcohol Use: Social Hx Recreational Drug Use: No Drugs: Marijuana Hx Prescription Drug Abuse: No - Advance Directive Resuscitation Status: Full Code Family History Family History: Reviewed & Not Pertinent Parental Family History Reviewed: Yes Children Family History Reviewed: Yes Sibling(s) Family History Reviewed.: Yes Medication/Allergy Home Medications: Azithromycin [Zithromax 250 mg Tablet] 250 mg PO ASDIR PRN #6 tablet 05/28/13 Ondansetron [Zofran Odt 4 mg Tablet] 1 - 2 tab PO Q6 #10 tab.rapdis 10/20/18 Levofloxacin [Levaquin 750 mg Tablet] 750 mg PO DAILY 5 Days #5 tab 07/04/19 Ondansetron [Zofran Odt 4 mg Tablet] 1 tab PO Q6H PRN #15 tab.rapdis 07/04/19 Allergies/Adverse Reactions: No Known Drug Allergies Allergy (Mild, Verified 07/05/19 13:46) Review of Systems Constitutional: PRESENT: chills, fatigue, fever(s), night sweats, weakness. ABSENT: headache(s), weight gain, weight loss Eyes: ABSENT: visual disturbances Ears: ABSENT: hearing changes Cardiovascular: ABSENT: chest pain, dyspnea on exertion, edema, orthropnea, palpitations Respiratory: PRESENT: cough, dyspnea. ABSENT: hemoptysis Gastrointestinal: PRESENT: diarrhea, nausea, vomiting. ABSENT: abdominal pain, constipation, hematemesis, hematochezia Genitourinary: ABSENT: dysuria, hematuria Musculoskeletal: ABSENT: joint swelling Integumentary: ABSENT: rash, wounds Neurological: ABSENT: abnormal gait, abnormal speech, confusion, dizziness, focal weakness, syncope Psychiatric: ABSENT: anxiety, depression, homidical ideation, suicidal ideation Endocrine: ABSENT: cold intolerance, heat intolerance, polydipsia, polyuria Hematologic/Lymphatic: ABSENT: easy bleeding, easy bruising Physical Exam Vital Signs: Temp Pulse Resp BP Pulse Ox 98.4 F 97 16 111/71 95 07/05/19 13:27 07/05/19 13:27 07/05/19 13:27 07/05/19 13:27 07/05/19 13:27 Intake & Output 07/04/19 07/05/19 07/06/19 06:59 06:59 06:59 Intake Total 1000 Balance 1000 Weight 75.8 kg General appearance: PRESENT: no acute distress, cooperative, well-developed, well-nourished Head exam: PRESENT: atraumatic, normocephalic Eye exam: PRESENT: conjunctiva pink, EOMI, PERRLA. ABSENT: scleral icterus Ear exam: PRESENT: normal external ear exam Mouth exam: PRESENT: moist, tongue midline Neck exam: ABSENT: carotid bruit, JVD, lymphadenopathy, thyromegaly Respiratory exam: PRESENT: chest wall tenderness - Right chest wall, rhonchi. ABSENT: rales, wheezes Cardiovascular exam: PRESENT: RRR. ABSENT: diastolic murmur, rubs, systolic murmur Pulses: PRESENT: normal dorsalis pedis pul Vascular exam: PRESENT: normal capillary refill GI/Abdominal exam: PRESENT: normal bowel sounds, soft. ABSENT: distended, guarding, mass, organolmegaly, rebound, tenderness Rectal exam: PRESENT: deferred Extremities exam: PRESENT: full ROM. ABSENT: calf tenderness, clubbing, pedal edema Neurological exam: PRESENT: alert, awake, oriented to person, oriented to place, oriented to time, oriented to situation, CN II-XII grossly intact. ABSENT: motor sensory deficit Psychiatric exam: PRESENT: appropriate affect, normal mood. ABSENT: homicidal ideation, suicidal ideation Skin exam: PRESENT: dry, intact, warm. ABSENT: cyanosis, rash Results Laboratory Results: 07/05/19 14:23 07/05/19 14:23 07/05/19 07/05/19 07/05/19 14:23 14:23 14:23 WBC 11.6 H RBC 4.84 Hgb 14.6 D Hct 41.1 MCV 85 MCH 30.2 MCHC 35.6 RDW 14.1 H Plt Count 161 Seg Neutrophils % Not Reportable Sodium 136.5 L Potassium 3.2 L Chloride 97 L Carbon Dioxide 29 Anion Gap 11 BUN 18 Creatinine 0.71 Est GFR ( Amer) > 60 Glucose 83 Calcium 8.7 Magnesium Total Bilirubin 0.6 AST 36 Alkaline Phosphatase 70 Total Protein 6.1 L Albumin 3.3 L Urine Color YELLOW Urine Appearance CLEAR Urine pH 6.0 Ur Specific [place] 1.016 Urine Protein 100 H Urine Glucose (UA) NEGATIVE Urine Ketones NEGATIVE Urine Blood NEGATIVE 07/05/19 14:23 WBC RBC Hgb Hct MCV MCH MCHC RDW Plt Count Seg Neutrophils % Sodium Potassium Chloride Carbon Dioxide Anion Gap BUN Creatinine Est GFR ( Amer) Glucose Calcium Magnesium 2.3 Total Bilirubin AST Alkaline Phosphatase Total Protein Albumin Urine Color Urine Appearance Urine pH Ur Specific [place] Urine Protein Urine Glucose (UA) Urine Ketones Urine Blood Impressions: Chest X-Ray 07/05/19 13:52 IMPRESSION: Right middle lobe pneumonia. There may be slight improvement. Assessment and Plan - Diagnosis (1) Positive blood culture Is this a current diagnosis for this admission?: Yes Plan: Blood cultures (07/04/2019) positive for Streptococcus pneumoniae. Repeat cultures pending. Sputum cultures pending Likely secondary to right middle lobe, community-acquired, pneumonia Continue on IV Levaquin. Infectious disease is consulted. (2) Pneumonia Qualifiers: Pneumonia type: due to unspecified organism Laterality: right Lung location: middle lobe of lung Qualified Code(s): J18.9 - Pneumonia, unspecified organism Is this a current diagnosis for this admission?: Yes Plan: Blood cultures (07/04/2019) positive for Streptococcus pneumoniae. Repeat cultures pending. Sputum cultures pending Patient is provided supplemental oxygen as needed maintain saturations greater than 89%. We will continue IV Levaquin. Scheduled and as needed nebulizer treatments. He is placed on Robitussin as needed. Pulmonary toilet is encouraged with incentive spirometer, flutter valve, early ambulation. (3) CVID (common variable immunodeficiency) Is this a current diagnosis for this admission?: Yes Plan: Dr. Mcneil is consulted for recommendations. (4) Hypokalemia Is this a current diagnosis for this admission?: Yes Plan: Likely secondary to poor po intake and diarrhea. Received replacement by ED provider Follow-up chemistry. - Time Time Spent with patient: 35 or more minutes Medications reviewed and adjusted accordingly: Yes Anticipated discharge: Home Within: within 72 hours - Inpatient Certification Based on my medical assessment, after consideration of the patient's comorbidities, presenting symptoms, or acuity I expect that the services needed warrant INPATIENT care.: Yes I certify that my determination is in accordance with my understanding of Medicare's requirements for reasonable and necessary INPATIENT services [42 CFR 412.3e].: Yes Medical Necessity: Need For IV Fluids, Need for IV Antibiotics, Risk of Complication if Not Cared For in Hospital, Risk of Diagnosis Which Will Require Inpatient Eval/Care/Monitoring Post Hospital Care: D/C Assistant Superintendent Documentation
[2019-07-05] MEDS: LEVOFLOXACIN 750 MG/D5W RTU 750 MG/150 ML RTUPB IV SCH (19:19)
[2019-07-05] MEDS: NORMAL SALINE 1000 ML 1,000 ML IV PRN (19:19)
[2019-07-05] MEDS: GUAIFENESIN SYRP 200 MG/10 ML UDC PO PRN (21:18)
[2019-07-05] MEDS: FAMOTIDINE 20 MG TABLET PO SCH (21:18)
[2019-07-05] MEDS: HEPARIN SOD (PORCINE) 5,000 UNIT/ML 1 ML VIAL SUBCUT SCH (21:22)
[2019-07-06] MEDS: IPRATROPIUM/ALBUTEROL 0.5-2.5 MG/3 ML AMPUL NEB SCH ×4 (00:08→23:44)
[2019-07-06 04:37] LABS: HEMATOCRIT 37.3 % (37.9-51.0); HEMOGLOBIN 13.4 g/dL (13.5-17.0); MEAN CORPUSCULAR HEMOGLOBIN 30.4 pg (27.0-33.4); MEAN CORPUSCULAR HGB CONC 35.9 g/dL (32.0-36.0); MEAN CORPUSCULAR VOLUME 85 fl (80-97); PLATELET COUNT 134 10^3/uL (150-450); WHITE BLOOD COUNT 6.9 10^3/uL (4.0-10.5)
[2019-07-06 05:01] LABS: ANION GAP 11 (5-19); BLOOD UREA NITROGEN 13 mg/dL (7-20); CALCIUM 8.5 mg/dL (8.4-10.2); CARBON DIOXIDE 27 mmol/L (22-30); CHLORIDE 103 mmol/L (98-107); GLUCOSE 96 mg/dL (75-110); POTASSIUM 3.6 mmol/L (3.6-5.0)
[2019-07-06] MEDS: HEPARIN SOD (PORCINE) 5,000 UNIT/ML 1 ML VIAL SUBCUT SCH ×3 (05:20→21:43)
[2019-07-06] MEDS: NORMAL SALINE 1000 ML 1,000 ML IV PRN ×2 (05:44→18:33)
[2019-07-06] MEDS ORDERED: IMMUNE GLOB,GAM CAPRYLATE(IGG) 40 GM, IMMUNE GLOB,GAM CAPRYLATE(IGG) 10 GM in CONTAINER... IV PRN (08:30)
[2019-07-06] MEDS ORDERED: DIPHENHYDRAMINE HCL 50 MG in NORMAL SALINE 50 ML IV PRN (08:31)
[2019-07-06] MEDS ORDERED: ACETAMINOPHEN 325 MG TABLET PO PRN (08:31)
--- NOTE | 2019-07-06 08:46 | PDOC CONSULTATION ---
Consultation Consult Date: 07/06/19 Attending physician:: XIMENA PACE Provider Consulted: MAGI MANZANARES Consult reason:: Common variable immunodeficiency History of Present Illness Admission Date/PCP: 07/05/19 17:14 Patient complains of: Patient with known history of CVid here with strep pneumo bacteremia and pneumonia History of Present Illness: BALWINDER MCGEE is a 33 year old male with longstanding history of common variable immunodeficiency, who for years has received monthly IVIG 50 g IV, unfortunately at the beginning of this year he switched over to a higher deductible, and was not able to get medication because of the deductible and we could not get co-pay assistance in place, therefore he has been off IVIG for about 3 months. He presents with increasing cough, shortness of breath and ultimately was found to have a right middle lobe pneumonia, he had blood cultures drawn which indicated strep pneumo, and he was admitted because of the bacteremia at the pneumonia. He is doing a little bit better today. Past Medical History Cardiac Medical History: Reports: None Pulmonary Medical History: Reports: Pneumonia EENT Medical History: Reports: None, Other - Immune deficiency Neurological Medical History: Reports: None Endocrine Medical History: Reports: None Renal/ Medical History: Reports: None Malignancy Medical History: Reports: None GI Medical History: Reports: None Musculoskeltal Medical History: Reports: None Skin Medical History: Reports: Psoriasis Psychiatric Medical History: Reports: None Traumatic Medical History: Reports: None Hematology: Reports: Other - Immune deficiency Infectious Medical History: Reports: None Past Surgical History Past Surgical History: Reports: None, Other - Eye surgery Social History Lives with: Spouse/Significant other Smoking Status: Current Some Day Smoker Cigarettes Packs Per Day: 0.5 Electronic Cigarette use?: No Frequency of Alcohol Use: Occasional Hx Recreational Drug Use: Yes Drugs: Marijuana Hx Prescription Drug Abuse: No - Advance Directive Resuscitation Status: Full Code Family History Family History: Reviewed & Not Pertinent Parental Family History Reviewed: Yes Children Family History Reviewed: Yes Sibling(s) Family History Reviewed.: Yes Medication/Allergy Home Medications: No Home Medications 07/05/19 Allergies/Adverse Reactions: No Known Drug Allergies Allergy (Mild, Verified 07/05/19 13:46) Review of Systems Constitutional: ABSENT: chills, fever(s), headache(s), weight gain, weight loss Eyes: ABSENT: visual disturbances Ears: ABSENT: hearing changes Cardiovascular: ABSENT: chest pain, dyspnea on exertion, edema, orthropnea, palpitations Respiratory: ABSENT: cough, hemoptysis Gastrointestinal: ABSENT: abdominal pain, constipation, diarrhea, hematemesis, hematochezia, nausea, vomiting Genitourinary: ABSENT: dysuria, hematuria Musculoskeletal: ABSENT: joint swelling Integumentary: ABSENT: rash, wounds Neurological: ABSENT: abnormal gait, abnormal speech, confusion, dizziness, focal weakness, syncope Psychiatric: ABSENT: anxiety, depression, homidical ideation, suicidal ideation Endocrine: ABSENT: cold intolerance, heat intolerance, polydipsia, polyuria Hematologic/Lymphatic: ABSENT: easy bleeding, easy bruising Physical Exam Vital Signs: Temp Pulse Resp BP Pulse Ox 98.6 F 72 16 110/62 95 07/06/19 06:48 07/06/19 08:26 07/06/19 08:26 07/06/19 06:48 07/06/19 08:26 Intake & Output 07/05/19 07/06/19 07/07/19 06:59 06:59 06:59 Intake Total 2150 Balance 2150 Weight 74.7 kg General appearance: PRESENT: no acute distress, well-developed, well-nourished Head exam: PRESENT: atraumatic, normocephalic Eye exam: PRESENT: conjunctiva pink, EOMI, PERRLA. ABSENT: scleral icterus Ear exam: PRESENT: normal external ear exam Mouth exam: PRESENT: moist, tongue midline Neck exam: ABSENT: carotid bruit, JVD, lymphadenopathy, thyromegaly Respiratory exam: PRESENT: clear to auscultation kim[place]. ABSENT: rales, rhonchi, wheezes Cardiovascular exam: PRESENT: RRR. ABSENT: diastolic murmur, rubs, systolic murmur Pulses: PRESENT: normal dorsalis pedis pul Vascular exam: PRESENT: normal capillary refill GI/Abdominal exam: PRESENT: normal bowel sounds, soft. ABSENT: distended, guarding, mass, organolmegaly, rebound, tenderness Rectal exam: PRESENT: deferred Extremities exam: PRESENT: full ROM. ABSENT: calf tenderness, clubbing, pedal edema Neurological exam: PRESENT: alert, awake, oriented to person, oriented to place, oriented to time, oriented to situation, CN II-XII grossly intact. ABSENT: motor sensory deficit Psychiatric exam: PRESENT: appropriate affect, normal mood. ABSENT: homicidal ideation, suicidal ideation Skin exam: PRESENT: dry, intact, warm. ABSENT: cyanosis, rash Results Laboratory Results: 07/06/19 04:02 07/06/19 04:02 07/05/19 07/05/19 07/05/19 14:23 14:23 14:23 WBC 11.6 H RBC 4.84 Hgb 14.6 D Hct 41.1 MCV 85 MCH 30.2 MCHC 35.6 RDW 14.1 H Plt Count 161 Seg Neutrophils % Not Reportable Sodium 136.5 L Potassium 3.2 L Chloride 97 L Carbon Dioxide 29 Anion Gap 11 BUN 18 Creatinine 0.71 Est GFR ( Amer) > 60 Glucose 83 Calcium 8.7 Magnesium Total Bilirubin 0.6 AST 36 Alkaline Phosphatase 70 Total Protein 6.1 L Albumin 3.3 L Urine Color YELLOW Urine Appearance CLEAR Urine pH 6.0 Ur Specific [place] 1.016 Urine Protein 100 H Urine Glucose (UA) NEGATIVE Urine Ketones NEGATIVE Urine Blood NEGATIVE 07/05/19 07/06/19 07/06/19 14:23 04:02 04:02 WBC 6.9 RBC 4.40 Hgb 13.4 L Hct 37.3 L MCV 85 MCH 30.4 MCHC 35.9 RDW 14.0 Plt Count 134 L Seg Neutrophils % Sodium 140.6 Potassium 3.6 Chloride 103 Carbon Dioxide 27 Anion Gap 11 BUN 13 Creatinine 0.61 Est GFR ( Amer) > 60 Glucose 96 Calcium 8.5 Magnesium 2.3 Total Bilirubin AST Alkaline Phosphatase Total Protein Albumin Urine Color Urine Appearance Urine pH Ur Specific [place] Urine Protein Urine Glucose (UA) Urine Ketones Urine Blood Impressions: Chest X-Ray 07/05/19 13:52 IMPRESSION: Right middle lobe pneumonia. There may be slight improvement. Assessment & Plan - Diagnosis (1) Pneumonia Qualifiers: Pneumonia type: due to group B Streptococcus Laterality: right Lung location: middle lobe of lung Qualified Code(s): J15.3 - Pneumonia due to streptococcus, group B Is this a current diagnosis for this admission?: Yes Plan: Secondary to strep pneumo, continue with antibiotics per hospitalist team (2) Bacteremia Is this a current diagnosis for this admission?: Yes Plan: Continue with IV antibiotic per hospitalist team (3) Common variable hypogammaglobulinemia Is this a current diagnosis for this admission?: Yes Plan: We will plan to give IVIG for patient while admitted, I gave orders to pharmacy to give treatment today. - Time Time Spent: Greater than 70 Minutes
[2019-07-06] MEDS: FAMOTIDINE 20 MG TABLET PO SCH ×2 (09:02→22:24)
[2019-07-06] MEDS: LEVOFLOXACIN 750 MG/D5W RTU 750 MG/150 ML RTUPB IV SCH (09:06)
[2019-07-06] MEDS: ACETAMINOPHEN 325 MG TABLET PO PRN (11:13)
--- NOTE | 2019-07-06 16:25 | Progress Note ---
Provider Note Provider Note: [facility] Telephone Advice Consultation: Chart reviewed. 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 He was supposed to be receiving IVIG but he has been off the med for 3 months due to insurance issues. He presented to the ED due to fever, cough, shortness of breath, worsening fatigue and weakness x 4-5 days. On admission, he had mild leukocytosis and CXR demonstrated a right middle lobe pneumonia. His blood cultures from admission were positive for Streptococcus pneumoniae. He is currently on levofloxacin. ID consulted for recommendations. PMH: CVID RA Allergies: No Known Drug Allergies Allergy (Mild, Verified 07/05/19 13:46) Medications: No Home Medications 07/05/19 Vital Signs: Temp Pulse Resp BP Pulse Ox 97.7 F 51 L 15 116/76 98 07/06/19 14:14 07/06/19 14:14 07/06/19 14:14 07/06/19 14:14 07/06/19 14:14 Intake & Output 07/05/19 07/06/19 07/07/19 06:59 06:59 06:59 Intake Total 2150 1177 Balance 2150 1177 Weight 74.7 kg Weight/Height Weight 74.7 kg Height 5 ft 9 in Laboratories: 07/06/19 04:02 07/06/19 04:02 MCV 85 fl (80-97) 07/06/19 04:02 MCH 30.4 pg (27.0-33.4) 07/06/19 04:02 MCHC 35.9 g/dL (32.0-36.0) 07/06/19 04:02 RDW 14.0 % (11.5-14.0) 07/06/19 04:02 Seg Neutrophils % Not Reportable 07/05/19 14:23 Chloride 103 mmol/L (98-107) 07/06/19 04:02 Carbon Dioxide 27 mmol/L (22-30) 07/06/19 04:02 Anion Gap 11 (5-19) 07/06/19 04:02 Est GFR ( Amer) > 60 (>60) 07/06/19 04:02 Glucose 96 mg/dL (75-110) 07/06/19 04:02 Calcium 8.5 mg/dL (8.4-10.2) 07/06/19 04:02 Magnesium 2.3 mg/dL (1.6-2.3) 07/05/19 14:23 Total Bilirubin 0.6 mg/dL (0.2-1.3) 07/05/19 14:23 AST 36 U/L (17-59) 07/05/19 14:23 Alkaline Phosphatase 70 U/L (38-126) 07/05/19 14:23 Total Protein 6.1 g/dL (6.3-8.2) L 07/05/19 14:23 Albumin 3.3 g/dL (3.5-5.0) L 07/05/19 14:23 Urine Color YELLOW 07/05/19 14:23 Urine Appearance CLEAR 07/05/19 14:23 Urine pH 6.0 (5.0-9.0) 07/05/19 14:23 Ur Specific [place] 1.016 07/05/19 14:23 Urine Protein 100 mg/dL (NEGATIVE) H 07/05/19 14:23 Urine Glucose (UA) NEGATIVE mg/dL (NEGATIVE) 07/05/19 14:23 Urine Ketones NEGATIVE mg/dL (NEGATIVE) 07/05/19 14:23 Urine Blood NEGATIVE (NEGATIVE) 07/05/19 14:23 Microbiology: Blood cultures: 07/04/19 Streptococcus pneumoniae Radiology: Chest X-Ray 07/05/19 13:52 IMPRESSION: Right middle lobe pneumonia. There may be slight improvement. Assessment and Recommendations: Patient with Streptococcus pneumoniae bacteremia in the setting of CVID and RA off therapy. Source is pneumonia, not clear if this is a post viral pneumonia. New blood cultures from 07/04 are negative to date. Will recommend ceftriaxone (bactericidal) 2g IV daily for now and to do a TTE. If TTE is negative and there is clinical improvement, can de escalate to levofloxacin (bacteriostatic used as stepdown therapy) 750 mg po daily to complete a total of 10 days based on clinical response. Patients that are immunocompromised can have severe disease from Streptococcus pneumoniae including endocarditis, meningitis, epidural abscess, etc. Please call back if questions. Charlotte Hutton MD [facility] [phone]
--- NOTE | 2019-07-06 21:40 | PDOC PROGRESS REPORT ---
Subjective Progress Note for:: 07/06/19 Subjective:: BALWINDER MCGEE is a 33 year old male with a past medical history of common variable immunodeficiency and rheumatoid arthritis and 22 with strep pneumoniae bacteremia secondary to community-acquired pneumonia. Patient was seen on afternoon rounds with family members present. He was found resting in bed, comfortably, on room air. He reports that he is feeling reina ewhat better today with decreased dyspnea, cough, and pleurisy. He denies further episodes of posttussive emesis. He further denies fever, chills, chest pain, abdominal pain, nausea and vomiting. They have no specific questions or concerns at this time; very appreciative the Dr. Mcneil has been able to arrange for IVIG. No concerns per nursing. Reason For Visit: PNEUMONIA,CVID (COMMON VARIABLE IMMUNODEFICIENCY) Physical Exam Vital Signs: Temp Pulse Resp BP Pulse Ox 98.3 F 61 16 120/83 96 07/06/19 18:32 07/06/19 18:44 07/06/19 18:44 07/06/19 18:32 07/06/19 18:44 Intake & Output 07/05/19 07/06/19 07/07/19 06:59 06:59 06:59 Intake Total 2149 2097 Balance 2149 2097 Weight 74.7 kg General appearance: PRESENT: no acute distress, cooperative, well-developed, well-nourished Head exam: PRESENT: atraumatic, normocephalic Eye exam: PRESENT: conjunctiva pink, EOMI, PERRLA. ABSENT: scleral icterus Ear exam: PRESENT: normal external ear exam Mouth exam: PRESENT: moist, tongue midline Neck exam: ABSENT: carotid bruit, JVD, lymphadenopathy, thyromegaly Respiratory exam: PRESENT: rhonchi, symmetrical, unlabored. ABSENT: rales, wheezes Cardiovascular exam: PRESENT: RRR. ABSENT: diastolic murmur, rubs, systolic murmur Pulses: PRESENT: normal dorsalis pedis pul Vascular exam: PRESENT: normal capillary refill GI/Abdominal exam: PRESENT: normal bowel sounds, soft. ABSENT: distended, guarding, mass, organolmegaly, rebound, tenderness Rectal exam: PRESENT: deferred Extremities exam: PRESENT: full ROM. ABSENT: calf tenderness, clubbing, pedal edema Musculoskeletal exam: PRESENT: ambulatory Neurological exam: PRESENT: alert, awake, oriented to person, oriented to place, oriented to time, oriented to situation, CN II-XII grossly intact. ABSENT: motor sensory deficit Psychiatric exam: PRESENT: appropriate affect, normal mood. ABSENT: homicidal ideation, suicidal ideation Skin exam: PRESENT: dry, intact, warm. ABSENT: cyanosis, rash Results Laboratory Results: 07/06/19 04:02 07/06/19 04:02 07/06/19 07/06/19 04:02 04:02 WBC 6.9 RBC 4.40 Hgb 13.4 L Hct 37.3 L MCV 85 MCH 30.4 MCHC 35.9 RDW 14.0 Plt Count 134 L Sodium 140.6 Potassium 3.6 Chloride 103 Carbon Dioxide 27 Anion Gap 11 BUN 13 Creatinine 0.61 Est GFR ( Amer) > 60 Glucose 96 Calcium 8.5 Impressions: Chest X-Ray 07/05/19 13:52 IMPRESSION: Right middle lobe pneumonia. There may be slight improvement. Assessment and Plan - Diagnosis (1) Positive blood culture Is this a current diagnosis for this admission?: Yes Plan: Blood cultures (07/04/2019; 2 of 4 bottles) positive for Streptococcus pneumoniae. Repeat cultures negative at 24 hours Sputum cultures pending Likely secondary to right middle lobe, community-acquired, pneumonia Infectious disease is consulted; greatly appreciate Dr. Hutton's review and recommendations in immunocompromised patient. Per Dr. Hutton's recommendations, the patient Levaquin is discontinued and he is placed on ceftriaxone 2 g. TTE pending. Following TTE results, patient may be considered for return to p.o. Levaquin for total course of 10 days therapy. (2) Pneumonia Qualifiers: Pneumonia type: due to group B Streptococcus Laterality: right Lung location: middle lobe of lung Qualified Code(s): J15.3 - Pneumonia due to streptococcus, group B Is this a current diagnosis for this admission?: Yes Plan: Blood cultures (07/04/2019) positive for Streptococcus pneumoniae. Repeat cultures NTD Sputum cultures pending Patient is provided supplemental oxygen as needed maintain saturations greater than 89%. Change to ceftriaxone per IDs recommendations. Scheduled and as needed nebulizer treatments. He is placed on Robitussin as needed. Pulmonary toilet is encouraged with incentive spirometer, flutter valve, early ambulation. (3) CVID (common variable immunodeficiency) Is this a current diagnosis for this admission?: Yes Plan: Dr. Mcneil is consulted for recommendations. Appreciate Dr. Mcneil's assistance; patient has received IVIG today. (4) Hypokalemia Is this a current diagnosis for this admission?: Yes Plan: Replete. - Time Time Spent with patient: 25-34 minutes Medications reviewed and adjusted accordingly: Yes Anticipated discharge: Home Within: within 72 hours - Pending TTE results.
[2019-07-06] MEDS: CEFTRIAXONE 2 GM/D5W RTU 2 GM/50 ML RTUPB IV SCH (22:24)
[2019-07-06] MEDS: GUAIFENESIN SYRP 200 MG/10 ML UDC PO PRN (23:25)
[2019-07-07] MEDS: HEPARIN SOD (PORCINE) 5,000 UNIT/ML 1 ML VIAL SUBCUT SCH ×3 (05:20→21:42)
[2019-07-07] MEDS: NORMAL SALINE 1000 ML 1,000 ML IV PRN ×2 (06:52→16:16)
--- NOTE | 2019-07-07 08:09 | PDOC PROGRESS REPORT ---
Subjective Progress Note for:: 07/07/19 Subjective:: She tolerated IVIG well, feels much better this morning Reason For Visit: PNEUMONIA,CVID (COMMON VARIABLE IMMUNODEFICIENCY) Physical Exam Vital Signs: Temp Pulse Resp BP Pulse Ox 98.0 F 66 15 129/77 H 95 07/06/19 23:22 07/06/19 23:46 07/06/19 23:46 07/06/19 23:22 07/06/19 23:46 Intake & Output 07/06/19 07/07/19 07/08/19 06:59 06:59 06:59 Intake Total 2150 3148 Balance 2150 3148 Weight 74.7 kg 77.4 kg General appearance: PRESENT: no acute distress, well-developed, well-nourished Head exam: PRESENT: atraumatic, normocephalic Eye exam: PRESENT: conjunctiva pink, EOMI, PERRLA. ABSENT: scleral icterus Ear exam: PRESENT: normal external ear exam Mouth exam: PRESENT: moist, tongue midline Neck exam: ABSENT: carotid bruit, JVD, lymphadenopathy, thyromegaly Respiratory exam: PRESENT: clear to auscultation kimberly. ABSENT: rales, rhonchi, wheezes Cardiovascular exam: PRESENT: RRR. ABSENT: diastolic murmur, rubs, systolic murmur Pulses: PRESENT: normal dorsalis pedis pul Vascular exam: PRESENT: normal capillary refill GI/Abdominal exam: PRESENT: normal bowel sounds, soft. ABSENT: distended, guarding, mass, organolmegaly, rebound, tenderness Rectal exam: PRESENT: deferred Extremities exam: PRESENT: full ROM. ABSENT: calf tenderness, clubbing, pedal edema Neurological exam: PRESENT: alert, awake, oriented to person, oriented to place, oriented to time, oriented to situation, CN II-XII grossly intact. ABSENT: motor sensory deficit Psychiatric exam: PRESENT: appropriate affect, normal mood. ABSENT: homicidal ideation, suicidal ideation Skin exam: PRESENT: dry, intact, warm. ABSENT: cyanosis, rash Results Laboratory Results: 07/06/19 04:02 07/06/19 04:02 Impressions: Chest X-Ray 07/05/19 13:52 IMPRESSION: Right middle lobe pneumonia. There may be slight improvement. Assessment & Plan - Diagnosis (1) Pneumonia Qualifiers: Pneumonia type: due to group B Streptococcus Laterality: right Lung location: middle lobe of lung Qualified Code(s): J15.3 - Pneumonia due to streptococcus, group B Is this a current diagnosis for this admission?: Yes Plan: Continue with antibiotic per hospitalist team (2) Bacteremia Is this a current diagnosis for this admission?: Yes Plan: Continue with IV antibiotic (3) Common variable hypogammaglobulinemia Is this a current diagnosis for this admission?: Yes Plan: We will initiate continued therapy as an outpatient with IVIG, dose given while inpatient yesterday, will follow up patient next as an outpatient - Time Time Spent with patient: 15-24 minutes
[2019-07-07] MEDS: IPRATROPIUM/ALBUTEROL 0.5-2.5 MG/3 ML AMPUL NEB SCH ×2 (08:22→16:19)
[2019-07-07] MEDS: FAMOTIDINE 20 MG TABLET PO SCH ×2 (09:33→21:41)
[2019-07-07] MEDS ORDERED: HYDROCODONE BIT/HOMATROPINE 5-1.5 MG TABLET PO PRN (13:33)
--- NOTE | 2019-07-07 15:54 | PDOC PROGRESS REPORT ---
Subjective Progress Note for:: 07/07/19 Subjective:: BALWINDER MCGEE is a 33 year old male with a past medical history of common variable immunodeficiency and rheumatoid arthritis and 22 with strep pneumoniae bacteremia secondary to community-acquired pneumonia. Patient was seen on morning rounds. He was found resting in bed, comfortably, on room air. He reports that he is feeling better today with decreased dyspnea, cough, and pleurisy. Did have difficulty sleeping last night due to cough that was minimally responsive to robitussin. He further denies fever, chills, chest pain, abdominal pain, nausea and vomi ting. No new questions or concerns. No concerns per nursing. Reason For Visit: PNEUMONIA,CVID (COMMON VARIABLE IMMUNODEFICIENCY) Physical Exam Vital Signs: Temp Pulse Resp BP Pulse Ox 98.0 F 78 16 129/77 H 95 07/06/19 23:22 07/07/19 08:22 07/07/19 08:22 07/06/19 23:22 07/07/19 08:22 Intake & Output 07/06/19 07/07/19 07/08/19 06:59 06:59 06:59 Intake Total 2150 3148 Balance 2150 3148 Weight 74.7 kg 77.4 kg General appearance: PRESENT: no acute distress, cooperative, well-developed, well-nourished Head exam: PRESENT: atraumatic, normocephalic Eye exam: PRESENT: conjunctiva pink, EOMI, PERRLA. ABSENT: scleral icterus Ear exam: PRESENT: normal external ear exam Mouth exam: PRESENT: moist, tongue midline Respiratory exam: PRESENT: clear to auscultation kimberly, symmetrical, unlabored. ABSENT: rales, rhonchi, wheezes Cardiovascular exam: PRESENT: RRR, +S1, +S2. ABSENT: diastolic murmur, rubs, systolic murmur Pulses: PRESENT: normal dorsalis pedis pul Vascular exam: PRESENT: normal capillary refill Extremities exam: PRESENT: full ROM. ABSENT: calf tenderness, clubbing, pedal edema Musculoskeletal exam: PRESENT: ambulatory Neurological exam: PRESENT: alert, awake, oriented to person, oriented to place, oriented to time, oriented to situation, CN II-XII grossly intact. ABSENT: motor sensory deficit Psychiatric exam: PRESENT: appropriate affect, normal mood. ABSENT: homicidal ideation, suicidal ideation Skin exam: PRESENT: dry, intact, warm. ABSENT: cyanosis, rash Results Laboratory Results: 07/06/19 04:02 07/06/19 04:02 Impressions: Chest X-Ray 07/05/19 13:52 IMPRESSION: Right middle lobe pneumonia. There may be slight improvement. Assessment and Plan - Diagnosis (1) Positive blood culture Is this a current diagnosis for this admission?: Yes Plan: Blood cultures (07/04/2019; 4 of 4 bottles) positive for Streptococcus pneumoniae. Repeat cultures negative at 24 hours Sputum cultures pending; not yet obtained. Likely secondary to right middle lobe, community-acquired, pneumonia Infectious disease is consulted; greatly appreciate Dr. Hutton's review and recommendations in immunocompromised patient. Per Dr. Hutton's recommendations, the patient Levaquin is discontinued and he is placed on ceftriaxone 2 g. TTE pending. Following TTE results, patient may be considered for return to p.o. Levaquin for total course of 10 days therapy. (2) Pneumonia Qualifiers: Pneumonia type: due to group B Streptococcus Laterality: right Lung location: middle lobe of lung Qualified Code(s): J15.3 - Pneumonia due to streptococcus, group B Is this a current diagnosis for this admission?: Yes Plan: Blood cultures (07/04/2019) positive for Streptococcus pneumoniae. Repeat cultures NTD Sputum cultures pending Patient is provided supplemental oxygen as needed maintain saturations greater than 89%. Change to ceftriaxone per ID's recommendations. Scheduled and as needed nebulizer treatments. He is placed on Robitussin as needed. Pulmonary toilet is encouraged with incentive spirometer, flutter valve, early ambulation. (3) CVID (common variable immunodeficiency) Is this a current diagnosis for this admission?: Yes Plan: Dr. Mcneil is consulted for recommendations. Appreciate Dr. Mcneil's assistance; patient has received IVIG yesterday (4) Hypokalemia Is this a current diagnosis for this admission?: Yes Plan: Replete. - Time Time Spent with patient: 25-34 minutes Medications reviewed and adjusted accordingly: Yes Anticipated discharge: Home Within: within 24 hours - pending TTE results
--- NOTE | 2019-07-07 18:17 | XCELERA REPORT ---
[address] [address] Transthoracic Echocardiogram Report Name: BALWINDER MCGEE Age: 33 yrs Gender: Male : 1985 Patient Status: Inpatient Patient Location: [address] [place] [address] Study Date: 07/07/2019 08:27 AM Height: 69 in Weight: 164 lb BSA: 1.9 m2 Procedure: A complete two-dimensional transthoracic echocardiogram was performed (2D, M-mode, spectral and color flow Doppler). The study was technically adequate with some images being suboptimal in quality. Reason For Study: bacteremia Ordering Physician: JACKSON RODRÍGUEZ Performed By: Bety Greer Interpretation Summary Left ventricular systolic function is normal. The left ventricle is grossly normal size. There is normal left ventricular wall thickness. Doppler measurements suggest normal left ventricular diastolic function The right ventricular systolic function is normal. The right atrium is normal. The left atrial size is normal. There is a trace amount of mitral regurgitation There is no mitral valve stenosis. No aortic regurgitation is present. There is no aortic valve stenosis There is a trace or physiologic amount of tricuspid regurgitation Tricuspid regurgitation jet envelope not well defined to measure RV systolic pressure accurately. The aortic root is not well visualized but is probably normal size. The inferior vena cava appeared normal and decreased > 50% with respiration (RAP 5-10 mmHg) There is no pericardial effusion. No definite vegetations noted. Consider multiple blood cultures. Consider RHEA if clinically indicated. MMode/2D Measurements & Calculations RVDd: 1.9 cm LVIDd: 4.8 cm FS: 38.1 % Ao root diam: 3.0 cm IVSd: 1.0 cm LVIDs: 3.0 cm EDV(Teich): Ao root area: 105.7 ml LVPWd: 0.92 cm 6.9 cm2 ESV(Teich): 33.6 ml EF(Teich): 68.2 % LVOT diam: 2.1 cm EDV(MOD-sp4): SV(MOD-sp4): LVOT area: 88.1 ml 53.9 ml 3.3 cm2 ESV(MOD-sp4): 34.2 ml EF(MOD-sp4): 61.2 % Doppler Measurements & Calculations MV E max esequiel: MV dec slope: Ao V2 max: LV V1 max P.0 cm/sec 129.1 cm/sec 7.0 mmHg MV A max esequiel: 444.8 cm/sec2 Ao max PG: LV V1 max: 71.5 cm/sec MV dec time: 0.21 sec6.7 mmHg 132.7 cm/sec MV E/A: 1.3 KERRY(V,D): 3.4 cm2 PA V2 max: 113.8 cm/sec PA max P.2 mmHg Left Ventricle The left ventricle is grossly normal size. There is normal left ventricular wall thickness. Left ventricular systolic function is normal. Doppler measurements suggest normal left ventricular diastolic function. Wall motion cannot be accurately commented on, but no definite regional wall motion abnormalities noted. Right Ventricle The right ventricle is grossly normal size. There is normal right ventricular wall thickness. The right ventricular systolic function is normal. Atria The right atrium is normal. The left atrial size is normal. Interarterial septum not well visualized and not well dopplered. Cannot comment on ASD/PFO presence. Mitral Valve The mitral valve is grossly normal. There is no mitral valve stenosis. There is a trace amount of mitral regurgitation. Aortic Valve The aortic valve is grossly normal. There is no aortic valve stenosis. No aortic regurgitation is present. Tricuspid Valve The tricuspid valve is not well visualized, but is grossly normal. There is no tricuspid stenosis. There is a trace or physiologic amount of tricuspid regurgitation. Tricuspid regurgitation jet envelope not well defined to measure RV systolic pressure accurately. Pulmonic Valve The pulmonic valve is not well visualized. Great Vessels The aortic root is not well visualized but is probably normal size. The inferior vena cava appeared normal and decreased > 50% with respiration (RAP 5-10 mmHg). Effusions There is no pericardial effusion. Incidental Findings No definite vegetations noted but cannot completely rule it out. Consider RHEA if clinically indicated. : JACKSON RODRÍGUEZ Shyamal
[2019-07-07] MEDS: ACETAMINOPHEN 325 MG TABLET PO PRN (21:41)
[2019-07-07] MEDS: CEFTRIAXONE 2 GM/D5W RTU 2 GM/50 ML RTUPB IV SCH (21:41)
[2019-07-08] MEDS: IPRATROPIUM/ALBUTEROL 0.5-2.5 MG/3 ML AMPUL NEB SCH ×2 (00:51→08:08)
[2019-07-08] MEDS: NORMAL SALINE 1000 ML 1,000 ML IV PRN (04:29)
[2019-07-08] MEDS: HEPARIN SOD (PORCINE) 5,000 UNIT/ML 1 ML VIAL SUBCUT SCH ×2 (05:15→14:18)
[2019-07-08] MEDS: FAMOTIDINE 20 MG TABLET PO SCH (10:08)
--- NOTE | 2019-07-08 13:21 | PDOC DISCHARGE SUMMARY ---
Impression - Admit/DC Date/PCP Admission Date/Primary Care Provider: 07/05/19 17:14 Discharge Date: 07/08/19 - Discharge Diagnosis (1) Positive blood culture Is this a current diagnosis for this admission?: Yes (2) Pneumonia Is this a current diagnosis for this admission?: Yes (3) CVID (common variable immunodeficiency) Is this a current diagnosis for this admission?: Yes (4) Hypokalemia Is this a current diagnosis for this admission?: Yes (5) Bacteremia Is this a current diagnosis for this admission?: Yes - Additional Information Resuscitation Status: Full Code Discharge Diet: Regular Discharge Activity: Activity As Tolerated, Balance Activity w/Rest Referrals: MAGI MANZANARES MD [ACTIVE STAFF] - 07/11/19 8:30 am Prescriptions: Hydrocodone Bit/Homatropine [Hycodan 5-1.5 mg Tablet] 1 tab PO Q6HP PRN #20 tablet PRN Reason: Levofloxacin [Levaquin 750 mg Tablet] 750 mg PO DAILY #7 tab Home Medications: Acetaminophen [Tylenol 325 mg Tablet] 650 mg PO Q4HP PRN tablet 07/08/19 Guaifenesin [Robitussin Syrup 200 mg/10 ml Ud Cup] 200 mg PO Q4HP PRN udc 06/25 07/14 Hydrocodone Bit/Homatropine [Hycodan 5-1.5 mg Tablet] 1 tab PO Q6HP PRN #20 tablet 07/08/19 Levofloxacin [Levaquin 750 mg Tablet] 750 mg PO DAILY #7 tab 07/08/19 History of Present Illiness History of Present Illness: BALWINDER MCGEE is a 33 year old male with a past medical history of common variable immunodeficiency and rheumatoid arthritis that typically receives IV Ig and Humira through Dr. Manzanares's office but has not received doses for several months due to insurance difficulties. He presented to the emergency department yesterday for complaint of progressively worsening fatigue, generalized weakness, low-grade fever, shortness of breath, nonproductive cough over the past 4 to 5 days with posttussive emesis and infrequent diarrhea. Influenza was not sought as the patient was outside window for Tamiflu. Chest x-ray did reveal a right middle lobe pneumonia. Blood cultures from ED visit 07/04/2019 have already resulted Streptococcus pneumoniae and 2 of 4 bottles. Based on blood culture results, the patient was called back into the emergency department for admission and management of bacteremia. Repeat laboratory evaluation today shows continued leukocytosis (WBC is 11.6), hypokalemia (K3.2), normal urinalysis, chest x-ray demonstrating slightly improved aeration of the right middle lobe, and stable vital signs. He is referred to the hospitalist service for admission and management of the above-stated complaints and findings. Hospital Course Hospital Course: (1) Bacteremia Blood cultures (07/04/2019; 4 of 4 bottles) positive for Streptococcus pneumoniae. Repeat cultures negative at 48 hours Likely secondary to right middle lobe, community-acquired, pneumonia Patient was admitted to the medical floor. Infectious disease was consulted; greatly appreciate Dr. Hutton's review and recommendations in immunocompromised patient. He was initially placed on IV Levaquin but then transitioned to IV ceftriaxone per infectious diseases recommendations. TTE was negative for evidence of endocarditis. Per ID's recommendations, he is discharged on PO Levaquin 750 mg to complete a full 10 day course of therapy. (2) Pneumonia Blood cultures (07/04/2019) positive for Streptococcus pneumoniae. Repeat cultures NTD Patient is provided supplemental oxygen as needed maintain saturations greater than 89%; now maintaining oxygen saturation on room air. Scheduled and as needed nebulizer treatments. He is placed on Robitussin as needed; Hycodan as needed for persistent cough. Pulmonary toilet is encouraged with incentive spirometer, flutter valve, early ambulation. Antibiotics as aboved. (3) CVID (common variable immunodeficiency) Dr. Manzanares was consulted; patient has received IVIG. To follow up as outpatient. (4) Hypokalemia Replete. (5) Positive blood culture Management as above. Physical Exam Vital Signs: Temp Pulse Resp BP Pulse Ox 98.1 F 56 L 14 123/85 95 07/08/19 11:24 07/08/19 11:24 07/08/19 11:24 07/08/19 11:24 07/08/19 11:24 Intake & Output 07/07/19 07/08/19 07/09/19 06:59 06:59 06:59 Intake Total 3148 3070 Balance 3148 3070 Weight 77.4 kg 74.7 kg General appearance: PRESENT: no acute distress, cooperative, well-developed, well-nourished Head exam: PRESENT: atraumatic, normocephalic Eye exam: PRESENT: conjunctiva pink, EOMI, PERRLA. ABSENT: scleral icterus Ear exam: PRESENT: normal external ear exam Mouth exam: PRESENT: moist, tongue midline Respiratory exam: PRESENT: clear to auscultation [place], symmetrical, unlabored. ABSENT: rales, rhonchi, wheezes Cardiovascular exam: PRESENT: RRR, +S1, +S2. ABSENT: diastolic murmur, rubs, systolic murmur Pulses: PRESENT: normal dorsalis pedis pul Vascular exam: PRESENT: normal capillary refill Extremities exam: PRESENT: full ROM. ABSENT: calf tenderness, clubbing, pedal edema Musculoskeletal exam: PRESENT: ambulatory Neurological exam: PRESENT: alert, awake, oriented to person, oriented to place, oriented to time, oriented to situation, CN II-XII grossly intact. ABSENT: motor sensory deficit Psychiatric exam: PRESENT: appropriate affect, normal mood. ABSENT: homicidal ideation, suicidal ideation Skin exam: PRESENT: dry, intact, warm. ABSENT: cyanosis, rash Results Laboratory Results: WBC 6.9 10^3/uL (4.0-10.5) 07/06/19 04:02 RBC 4.40 10^6/uL (4.35-5.55) 07/06/19 04:02 Hgb 13.4 g/dL (13.5-17.0) L 07/06/19 04:02 Hct 37.3 % (37.9-51.0) L 07/06/19 04:02 MCV 85 fl (80-97) 07/06/19 04:02 MCH 30.4 pg (27.0-33.4) 07/06/19 04:02 MCHC 35.9 g/dL (32.0-36.0) 07/06/19 04:02 RDW 14.0 % (11.5-14.0) 07/06/19 04:02 Plt Count 134 10^3/uL (150-450) L 07/06/19 04:02 Lymph % (Auto) Not Reportable 07/05/19 14:23 [place] % (Auto) Not Reportable 07/05/19 14:23 Eos % (Auto) Not Reportable 07/05/19 14:23 Baso % (Auto) Not Reportable 07/05/19 14:23 Absolute Neuts (auto) Not Reportable 07/05/19 14:23 Absolute Lymphs (auto) Not Reportable 07/05/19 14:23 Absolute Monos (auto) Not Reportable 07/05/19 14:23 Absolute Eos (auto) Not Reportable 07/05/19 14:23 Absolute Basos (auto) Not Reportable 07/05/19 14:23 Total Counted 100 07/05/19 14:23 Seg Neutrophils % Not Reportable 07/05/19 14:23 Seg Neuts % (Manual) 73 % (42-78) 07/05/19 14:23 Band Neutrophils % 3 % (3-5) 07/05/19 14:23 Lymphocytes % (Manual) 18 % (13-45) 07/05/19 14:23 Atypical Lymphs % 2 % (0) 07/05/19 14:23 Monocytes % (Manual) 3 % (3-13) 07/05/19 14:23 Eosinophils % (Manual) 0 % (0-6) 07/05/19 14:23 Basophils % (Manual) 0 % (0-2) 07/05/19 14:23 Metamyelocytes % 1 % (0-1) 07/05/19 14:23 Abs Neuts (Manual) 8.9 10^3/uL (1.7-8.2) H 07/05/19 14:23 Abs Lymphs (Manual) 2.3 10^3/uL (0.5-4.7) 07/05/19 14:23 Abs Monocytes (Manual) 0.3 10^3/uL (0.1-1.4) 07/05/19 14:23 Absolute Eos (Manual) 0.0 10^3/uL (0.0-0.6) 07/05/19 14:23 Abs Basophils (Manual) 0.0 10^3/uL (0.0-0.2) 07/05/19 14:23 Platelet Comment ADEQUATE 07/05/19 14:23 Poikilocytosis SLIGHT 07/05/19 14:23 Anisocytosis SLIGHT 07/05/19 14:23 Ovalocytes SLIGHT 07/05/19 14:23 [place] Cells SLIGHT 07/05/19 14:23 Sodium 140.6 mmol/L (137-145) 07/06/19 04:02 Potassium 3.6 mmol/L (3.6-5.0) 07/06/19 04:02 Chloride 103 mmol/L (98-107) 07/06/19 04:02 Carbon Dioxide 27 mmol/L (22-30) 07/06/19 04:02 Anion Gap 11 (5-19) 07/06/19 04:02 BUN 13 mg/dL (7-20) 07/06/19 04:02 Creatinine 0.61 mg/dL (0.52-1.25) 07/06/19 04:02 Est GFR ( Amer) > 60 (>60) 07/06/19 04:02 Est GFR (MDRD) Non-Af > 60 (>60) 07/06/19 04:02 Glucose 96 mg/dL (75-110) 07/06/19 04:02 Calcium 8.5 mg/dL (8.4-10.2) 07/06/19 04:02 Magnesium 2.3 mg/dL (1.6-2.3) 07/05/19 14:23 Total Bilirubin 0.6 mg/dL (0.2-1.3) 07/05/19 14:23 Direct Bilirubin 0.3 mg/dL (0.0-0.4) 07/05/19 14:23 Neonat Total Bilirubin Not Reportable 07/05/19 14:23 Neonat Direct Bilirubin Not Reportable 07/05/19 14:23 Neonat Indirect Bili Not Reportable 07/05/19 14:23 AST 36 U/L (17-59) 07/05/19 14:23 ALT 28 U/L (<50) 07/05/19 14:23 Alkaline Phosphatase 70 U/L (38-126) 07/05/19 14:23 Total Protein 6.1 g/dL (6.3-8.2) L 07/05/19 14:23 Albumin 3.3 g/dL (3.5-5.0) L 07/05/19 14:23 Urine Color YELLOW 07/05/19 14:23 Urine Appearance CLEAR 07/05/19 14:23 Urine pH 6.0 (5.0-9.0) 07/05/19 14:23 Ur Specific [place] 1.016 07/05/19 14:23 Urine Protein 100 mg/dL (NEGATIVE) H 07/05/19 14:23 Urine Glucose (UA) NEGATIVE mg/dL (NEGATIVE) 07/05/19 14:23 Urine Ketones NEGATIVE mg/dL (NEGATIVE) 07/05/19 14:23 Urine Blood NEGATIVE (NEGATIVE) 07/05/19 14:23 Urine Nitrite (Reflex) NEGATIVE (NEGATIVE) 07/05/19 14:23 Urine Bilirubin NEGATIVE (NEGATIVE) 07/05/19 14:23 Urine Urobilinogen NEGATIVE mg/dL (<2.0) 07/05/19 14:23 Leukocyte Esterase Rfl NEGATIVE (NEGATIVE) 07/05/19 14:23 Urine WBC RARE /HPF 07/05/19 14:23 Urine Ascorbic Acid NEGATIVE (NEGATIVE) 07/05/19 14:23 Impressions: Chest X-Ray 07/05/19 13:52 IMPRESSION: Right middle lobe pneumonia. There may be slight improvement. Plan Plan of Treatment: Discharged home in stable condition. Complete 7 day course of PO Levaquin for total 10 days of therapy. Follow up with Heme/Onc as scheduled. Return to the emergency department as needed. Time Spent: Greater than 30 Minutes Stroke Is this a Stroke Patient?: No Acute Heart Failure - Is this a Heart Failure Patient?: No
[2019-07-08 13:38] VITALS: BP 134/83
== END 2019-07-08 16:01 | disposition home or self-care (01) | DRG 871 ==
LOC: ER 13:22 → EH 17:14 → 4S 19:00
PROVIDERS: ADMIT Family Medicine; ATTEND Registered Nurse
DX: R78.81 Bacteremia (principal); J18.9 Pneumonia, unspecified organism; D80.1 Nonfamilial hypogammaglobulinemia; E87.6 Hypokalemia; M06.9 Rheumatoid arthritis, unspecified; B95.3 Streptococcus pneumoniae as the cause of diseases classified elsewhere; L40.9 Psoriasis, unspecified; F17.210 Nicotine dependence, cigarettes, uncomplicated; F12.10 Cannabis abuse, uncomplicated; Z87.01 Personal history of pneumonia (recurrent); Z59.8 Other problems related to housing and economic circumstances
CPT/HCPCS: 36415; 71046; 80048; 80053; 81001; 83735; 85025; 85027; 87040; 93306; 94640; 94799; 96360; 99285; J1561; J0696; J1200; J1956; J3490; J7030; J7620